=== PATIENT | female | born 1990 | race Caucasian/White ===

== ENCOUNTER → 2022-04-03 14:26 | Outpatient (CLI) | payer OTHER, SELFPAY ==
--- NOTE | ~2022-04-03 | US_ITS ---
EXAMINATION: US breast BI limited HISTORY: Palpable lump in the upper inner quadrant of the left breast and fibrocystic change in the u pper outer quadrant of the right breast TECHNIQUE: Bilateral breast ultrasound. FINDINGS: There is no evidence of focal abnormal cystic or solid mass in the vicinity of the palpable lump of the upper inner left breast. There is a 5 mm cyst at the 9:00 location 5 cm from the nipple in the right breast. There is a 5 mm cyst at the 9:00 location near the nipple in the right breast. IMPRESSION: No suspicious sonographic correlate is identified for the reported palpable abnormality of concern in the left breast with fibrocystic changes of the right breast. Further evaluation at this time should be based on clinical assessment. Continued follow-up physical examination is recommended. BI-RADS Category 2: Benign finding(s). Reviewed, dictated and finalized at location A. IMPRESSION: No suspicious sonographic correlate is identified for the reported palpable abn ormality of concern in the left breast with fibrocystic changes of the right br east. Further evaluation at this time should be based on clinical assessment. C ontinued follow-up physical examination is recommended. BI-RADS Category 2: Benign finding(s).
== END ==
PROVIDERS: Visit Provider Nurse Practitioner
DX: N63.22 Unspecified lump in the left breast, upper inner quadrant (principal)
CPT/HCPCS: 76642

== ENCOUNTER 2024-09-24 08:02 | Emergency (ER) | payer OTHER, SELFPAY ==
--- NOTE | 2024-09-24 08:09 | ED_ITS ---
HPI - General Adult General Chief complaint: Arrhythmia/Palpitations Stated complaint: Heartrate high Time Seen by Provider: 09/24/24 08:30 Source: patient Mode of arrival: ambulatory Limitations: no limitations History of Present Illness HPI narrative: 34-year-old female presents concern is fast heart rate. Reports she felt dizzy and lightheaded this morning and when she was driving to work her smart watch alerted her that her heart rate was in the 160s. She denies feeling anxious at that time. She denies current symptoms. Denies any history of cardiac problems. She denies chest pain or shortness of breath MD complaint: Fast heart rate Related Data Home Medications ?Medication ?Instructions ?Recorded ?Confirmed ?Last Taken ?Type propranolol 10 mg tablet mg 09/24/24 Unknown History Allergies Allergy/AdvReac Type Severity Reaction Status Date / Time buspirone Allergy Severe Unverified 07/16/16 22:39 Review of Systems Review of Systems: CONSTITUTIONAL: Denies malaise, chills, sweats, or fever. CARDIOVASCULAR: Denies chest pain or edema. Reports fast heart rate today RESPIRATORY: Denies cough or dyspnea. NEUROLOGIC: Reports dizziness PSYCHIATRIC: Denies anxiety All systems reviewed & are unremarkable except as noted in HPI and below PMFSH Comments At time of signature, agree with nursing past medical, surgical, social and family history. There is no relevant family history pertinent to the presenting complaint Exam Narrative: GENERAL: Well-appearing, well-nourished, and in no acute distress. HEAD: Normocephalic, atraumatic. EYES: PERRLA, sclera clear, and EOMI. No nystagmus. ENT: Nares clear, no epistaxis. Mucous membranes moist. NECK: Supple. No lymphadenopathy. CHEST: No respiratory distress. Clear to auscultation. No bony deformities, no asymmetry. Speaks in full sentences. HEART: Regular rate and rhythm. No murmur heard. Normal peripheral pulses. EXTREMITIES: Normal range of motion. No edema. Normal strength and sensation. SKIN: Warm, dry, no visible rash. NEURO: Alert and oriented x3. PSYCH: Normal mood and affect Course Course Emergency Course: Patient is currently asymptomatic, EKG is normal. Patient given Cardiology referral Patient is aware of, understands and agrees to treatment plan. Anticipatory guidance given. Patient agrees to follow-up as directed and is aware of reasons to seek care at the emergency department. Portions of this record may have been created with voice recognition software Level of Care: Express Care Visit Vital Signs Vital signs: Reviewed. Medical Decision Making MDM Narrative Medical decision making narrative: The patient was evaluated by myself in the emergency department. History is obtained from patient who is an independent historian and physical exam was performed.? Available medical records were reviewed at this time. ? Exam findings and imaging show no acute concerns or changes; patient is non- toxic appearing and is in no distress. Patient is appropriate for outpatient treatment and follow-up. ? I have evaluated and discussed social determinants of health with the patient that could potentially impact subsequent diagnosis and treatment plans. ? Differential diagnosis and treatment plan were discussed with the patient. Patient agrees with discussion and after shared medical decision making agrees with plan of care. All questions were answered to the patient's satisfaction. ECG Data EKG #1: ECG completion date: 09/24/24 ECG completion time: 08:28 Interpretation: Rate 68, W[place] interval 170, QRS duration 89 EKG Interpretation: normal rate and sinus rhythm Critical Care Time Critical Care Time Critical Care Time: No Discharge Plan Discharge Clinical Impression: Heart rate fast Patient Disposition: Home, Self-Care Condition: Stable Instructions: Tachycardia (ED) Additional Instructions: 1) Please follow-up with your primary care doctor or Cardiology for further evaluation. 2) If you have any worsening of symptoms or any other urgent concerns please go to the ER. 3) Please continue taking your home medications as usual. 4) Please read and follow information included in discharge instructions. Patient Language: Lao Follow-up/Referrals: Cardiology [facility] [Provider Group] Vick Palomares DO [Physician] - PHYSICIAN NOT ON STAFF,NONSTAFF [Primary Care Provider] - Time of Disposition: 08:39
--- NOTE | 2024-09-24 08:14 | ECG_ITS ---
Test Date: 2024-09-24 08:28:15 Measurements Intervals [place] Rate: 68 P: 35 [place]: 170 QRS: 28 QRSD: 89 T: 7 QT: 392 QTc: 420 Interpretive Statements SINUS RHYTHM No previous ECG available for comparison Electronically Signed On 09-28-2024 11:19:34 VECTOR CONTROL SPECIALIST by Omar Ham M.D.
[2024-09-24 08:16] VITALS: BP 130/78; PULSE 71; RESP 16; TEMP 36.8; O2SAT 100
--- OUTSIDE RECORDS SUMMARY | 2024-10-01 06:28 | XMS_ITS | Clinical Summary ---
Author Organization [facility] Address [address] [place] [address] Phone Care Team Providers Care Marketing Traffic Coordinator Name Role Phone DESIRE ANGEL MD Primary Care Provider [phone] Reason for Visit and Chief Complaint The Chief Complaint is: Fever, sore throat, no appetite, ears feel full, congestion and fatigue. Symptoms started on 09-16-23 Problems Includes: Problems addressed during this encounter and other active Problems All Visits Onset Date Resolved Date Provider Condition S tatus Adjustment Disorder with Anxiety 08/27/2016 DESIRE ANGEL MD Active Last Documented On 08/27/2016 11:28PM ; [facility] Note: Unchanged Herpes Simplex Type I 08/27/2016 DESIRE ANGEL MD Active Last Documented On 08/27/2016 11:28PM ; [facility] Note: Unchanged Herpes Simplex Type II 08/27/2016 DESIRE ANGEL MD Active Last Documented On 08/27/2016 11:28PM ; [facility] Note: Unchanged Common Migraine Without Aura Without Intractable Migraine 08/27/2016 DESIRE ANGEL MD Active Last Documented On 08/27/2016 11:28PM ; [facility] Note: Unchanged Nicotine Dependence in Remission 08/27/2016 DESIRE ANGEL MD Active Last Documented On 08/27/2016 11:29PM ; [facility] Note: Unchanged - 5 PACK YR HX, QUIT Plan of Treatment - Return to the clinic if condition worsens or new symptoms arise - Last Documented On 09/19/2023 9:12AM ; [facility] - Patient will call for appointment as needed - Last Documented On 09/19/2023 9:12AM ; [facility] Assessments Includes: Assessments from this encounter Findings - [H65.03 - Acute serous otitis media, bilateral] Acute serous otitis media of both ears - Last Documented On 09/19/2023 9:12AM ; [facility] - [U07.1 - COVID-19] Acute COVID-19 infection - Last Documented On 09/19/2023 9:12AM ; [facility] Medical Equipment - Implanted Devices Includes: Current Devices No Medical Equipment Recorded Medications Includes: Medications discussed during this encounter and other current Medications New / Renewed during this visit CASANDRA TENORIO DNP on 09/19/2023 Fluconazole 150 MG Oral Tablet Provider: CASANDRA Shepherd WAISTLINE JOINER 2 day supply: 2 tablet, 0 refills Diagnosis: Acute serous otitis media, bilateral take as directed 150mg PO ev jloeen 72 hours x 2 doses Pharmacy: [address], [id number] - Last Documented On 9:21AM By Casandra Tenorio DNP ; [facility] Current Medications (continue as prescribed) buPROPion HCl ER (XL) 300 MG Oral Tablet Extended Release 24 Hour 07/18/2023 Provider: DESIRE ANGEL MD Diagnosis: Generalized anxi ety disorder TAKE 1 TABLET BY MOUTH DAILY Last Documented On 07/18/2023 9:11AM By Patti Montana Pineda ; [facility] hydrOXYzine HCl 25 MG Oral Tablet 12/14/2022 Provider: ULISES GONG Diagnosis: Adjustment disor rodney with anxiety 1 tab up to 3 times daily as needed for anxiety. may cause drowsiness Last Documented On 3:58PM By Ulises GONG ; [facility] Slynd 4 MG Oral Tablet 12/14/2022 Provider: Diagnosis: Last Documented On 12/14/2022 3:31PM By REBECA MENDOZA ; [facility] Medications Administered Includes: Administered Medications from this encounter No Administered Medications Recorded Vital Signs Includes: Vital Signs from this encounter Vital Name 09/19/2023 08:57A Pulse Rate-Sitting (bpm) 84 Temp-Oral (F) 98.3 Height (in) 67 Weight (lb) 178.6 Body Mass Index 28 Body Surface Area 1.9 Oxygen Saturation (%) 98 Last Documented: On 09/19/2023 8:59AM ; [facility] Results Includes: Results discussed during this encounter Group A strep [facility] Ordered by CASANDRA TENORIO DNP on Collected: Reported: 09/19/2023 09:00 Last Documented On 3 9:02AM ; [facility] Reviewed on 09/19/2023; All test results are final unless otherwise noted. Rapid Strep Negative N (Normal) Last Documented On 3 9:01AM ; [facility] LOT # AND EXP. DATE [id number] 02-14-26 N (Normal) Last Documented On 3 9:01AM ; [facility] INT. QC ACCEPTABLE? yes N (Normal) Last Documented On 3 9:01AM ; [facility] SARS COVID-19 FLU A & B [facility] Ordered by CASANDRA TENORIO DNP on Collected: Reported: 09/19/2023 09:01 Last Documented On 3 9:02AM ; [facility] Reviewed on 09/19/2023; All test results are final unless otherwise noted. COVID Positive A (Abnormal) Last Documented On 3 9:01AM ; [facility] INFLUENZA A Negative (Negative) N (Normal) Last Documented On 3 9:01AM ; [facility] INFLUENZA B Negative (negative) N (Normal) Last Documented On 3 9:01AM ; [facility] INT. QC ACCEPTABLE? yes N (Normal) Last Documented On 3 9:01AM ; [facility] LOT # & EXP. DATE [id number] 07-24-24 N (Normal) Last Documented On 3 9:01AM ; [facility] History of Present Illness Includes: History of Present Illness from this encounter ROHAN WHITE is a 33 year old female. - Allergy list reviewed - Medication list reviewed - Fever - Previously well - No chills - Headache associated with head congestion - Sinus pain - Sinus pressure - No swollen glands in the neck - No itching of the eyes - No discharge from the eyes - The ears feel pressured - The ears feel full - Nasal discharge - Nasal passage blockage (stuffiness) - Sore throat - No earache - No discharge from the ears - No postnasal drip - No sneezing - No itchy throat - No chest pain or discomfort - No palpitations - Dyspnea - Cough - Not feeling congested in the chest - No wheezing - No rash Korin presents to the clinic with the above reported symptoms that have been going on for the past 3 days now. She reports that she has been running a fever up until this morning. Patient denies any known sick contacts. Social History Description Last Updated Current smoker 09/19/2023 Last Documented On 3 9:12AM ; [facility] Smoking Status Unknown Procedures and Surgical History Includes: Procedures from this encounter Procedures Code Diagnosis Performing Provider Service L ocation Service Date use of tobacco assessment performed 1000F Last Documented On 3 8:59AM ; [facility] review of medications documented 1160F Last Documented On 3 8:59AM ; [facility] Clinical summary provided to patient Last Documented On 3 9:07AM ; [facility] Medical History Includes: Medical History addressed during this encounter No Medical History Recorded Family History Includes: Family History addressed during this encounter No Family History Recorded Review of Systems Includes: Review of Systems from this encounter Systemic: Feeling poorly (malaise) and fever. No chills. Head: Headache and sinus pain. Eyes: No itching of the eyes. Otolaryngeal: Otolaryngeal symptoms. No earache. Both ears feel full and nasal discharge. No hoarseness. Sore throat. Cardiovascular: No chest pain or discomfort. Pulmonary: Dyspnea and cough. No wheezing. Skin: No rash. Mental Status Includes: Mental Status from this encounter No Mental Status Recorded Functional Status Includes: Functional Status from this encounter No Functional Status Recorded Physical Exam Includes: Physical Exam from this encounter Allergies Includes: Active Allergies Substance Type Reaction Onset Date Resolved Date [facility] Allergy hypertension 08/20/2016 Active Last Documented On 3 8:59AM ; [facility] Encounters Encounter Provider Location Date Check-In Time Check-Out Time Diagnosis COVID SICK VISIT- ESTABLISHED PATIENT CASANDRA S JONA LOPEZ [facility] 09/19/20 8:41AM 9:06AM Otitis Media Acute Serous Both Ears,Coronavi aye Covid-19 Infection Acute Insurance Includes: Active Insurance Policies Plan Name Member ID Group # Subscriber Relationship Effect irving Dates 1 - [employer] [id number] KORIN WHITE Self 2 - [facility] [id number] KORIN WHITE Self Clinical Notes Includes: Clinical Notes from this encounter * Progress note Date Encounter Last Documented by 09/19/2023 COVID SICK VISIT- ESTABLISHED YUSUF SANDOVAL Last documented on 09/19/2023; 9:12 AM, CASANDRA TENORIO DNP; [facility] Chief Complaint The Chief Complaint is: Fever, sore throat, no appetite, ears feel full, congestion and fatigue. Symptoms started on 09-16-23. History of Present Illness KORIN WHITE is a 33 year old female. - Allergy list reviewed - Medication list reviewed - Fever - Previously well - No chills - Headache associated with head congestion - Sinus pain - Sinus pressure - No swollen glands in the neck - No itching of the eyes - No discharge from the eyes - The ears feel pressured - The ears feel full - Nasal discharge - Nasal passage blockage (stuffiness) - Sore throat - No earache - No discharge from the ears - No postnasal drip - No sneezing - No itchy throat - No chest pain or discomfort - No palpitations - Dyspnea - Cough - Not feeling congested in the chest - No wheezing - No rash Korin presents to the clinic with the above reported symptoms that have been going on for the past 3 days now. She reports that she has been running a fever up until this morning. Patient denies any known sick contacts. Social History Tobacco use: Current smoker. Review Of Systems Systemic: Feeling poorly (malaise) and fever. No chills. Head: Headache and sinus pain. Eyes: No itching of the eyes. Otolaryngeal: Otolaryngeal symptoms. No earache. Both ears feel full and nasal discharge. No hoarseness. Sore throat. Cardiovascular: No chest pain or discomfort. Pulmonary: Dyspnea and cough. No wheezing. Skin: No rash. Physical Findings - Vitals taken 09/19/2023 08:57 am Pulse Rate-Sitting 84 bpm Temp-Oral 98.3 F Height 67 in Weight 178 lbs 9.6 oz Body Mass Index 28 kg/m2 Body Surface Area 1.9 m2 Oxygen Saturation 98 % General Appearance: - Alert. - Well nourished. - In no acute distress. Neck: Suppleness: - Neck demonstrated no decrease in suppleness. Eyes: General/bilateral: Pupils: - PERRLA. Ears: General/bilateral: External Auditory Canal: - External auditory meatus normal. Right Ear: Tympanic Membrane: - Examined. - Bulging tympanic membrane. - Serous exudate behind tympanic membrane. Left Ear: Tympanic Membrane: - Examined. - Bulging tympanic membrane. - Serous exudate behind tympanic membrane. Nose: General/bilateral: Discharge: - Nasal discharge. Cavity: - Nasal turbinate swollen. Sinus Tenderness: - No sinus tenderness. Pharynx: Oropharynx: - Normal. - Tonsils showed no abnormalities. - Tonsils were not erythematous. - Tonsils were not enlarged. Mucosal: - Pharynx showed an accumulation of purulent mucous. Lymph Nodes: - Anterior cervical lymph nodes were not enlarged. - Posterior cervical lymph nodes were not enlarged. Lungs: - Normal breath sounds/voice sounds. - No wheezing was heard. - No rhonchi were heard. Cardiovascular: Heart Rate And Rhythm: - Normal. Skin: - General appearance was normal. - Texture was normal. - Turgor was normal. - Color and pigmentation were normal. - Moisture was normal. - Mucous membranes were not dry. Tests - Test: Group A strep Report Date: 09/19/2023 Rapid Strep Negative Normal LOT # AND EXP. DATE [id number] 02-14-26 Normal INT. QC ACCEPTABLE? yes Normal - Test: SARS COVID-19 FLU A & B Report Date: 09/19/2023 COVID Positive Abnormal INFLUENZA A Negative Normal INFLUENZA B Negative Normal INT. QC ACCEPTABLE? yes Normal LOT # & EXP. DATE [id number] 07-24-24 Normal Assessment - [H65.03 - Acute serous otitis media, bilateral] Acute serous otitis media of both ears - [U07.1 - COVID-19] Acute COVID-19 infection Therapy - Clinical summary provided to patient. Discussed COVID test was positive at today's visit. Strep test was negative. Flonase nasal spray BID to help dry up fluid behind both ear drums. Advised patient to quarantine 5 days from symptom onset. Follow CDC guidelines closely for COVID-19 virus. 1. Increase fluid intake. 2. Rest as much as possible. 3. Encourage use of humidifier- Regularly clean the humidifier so that bacteria does not grow. 4. Encouraged Vitamin C and Zinc to help boost immune system. 5. Cool liquids to soothe the throat, throat sprays, throat lozenges, cool liquids to help soothe the throat. 6. Acetaminophen or ibuprofen as needed for pain/fever. 7. Antihistamine as needed- such as Zyrtec, Claritin, or Benadryl. 8. Normal saline nasal spray or Netti Pot with sterile water as needed. 9. Warm compress to sinus area. 10. Patient voiced understanding to the teaching. Plan StartCited - Acute pharyngitis, unspecified In office procedures/*Clia Waived Labs: Rapid Strep Test EndCited StartCited - Acute serous otitis media, bilateral Fluconazole 150 MG tablet take as directed 150mg PO every 72 hours x 2 doses, 2 days, 0 refills EndCited StartCited - Fever, unspecified In office procedures/*[facility]ia Waived Labs: SARS COVID-19 + flu A & B test EndCited - Return to the clinic if condition worsens or new symptoms arise - Patient will call for appointment as needed Practice Management Use of tobacco assessment performed Review of medications documented.
--- OUTSIDE RECORDS SUMMARY | 2024-10-01 06:28 | XMS_ITS ---
Care Plan - [facility] Created on: October 01, 2024 ELZA WHITE : 1990 Sex: Female Author Organization [facility] Address [address] [place] [address] Phone Care Team Providers Care Communications Marketing Intern Name Role Phone STANLEY TSE, DESIRE Salomon Primary Care Provider [phone]
--- OUTSIDE RECORDS SUMMARY | 2024-10-01 06:28 | XMS_ITS | Clinical Summary ---
Author Organization [facility] Address [address] [place] [address] Phone Care Team Providers Care Bit Sander Name Role Phone DESIRE ANGEL MD Primary Care Provider [phone] Reason for Visit and Chief Complaint * PHONE CALL Problems Includes: Problems addressed during this encounter and other active Problems All Visits Onset Date Resolved Date Provider Condition S tatus Adjustment Disorder with Anxiety 08/27/2016 DESIRE ANGEL MD Active Last Documented On 08/27/2016 11:28PM ; [facility] Note: Unchanged Herpes Simplex Type I 08/27/2016 DESIRE ANGEL MD Active Last Documented On 08/27/2016 11:28PM ; [facility] Note: Unchanged Herpes Simplex Type II 08/27/2016 DESIRE ANGEL MD Active Last Documented On 08/27/2016 11:28PM ; [facility] Note: Unchanged Common Migraine Without Aura Without Intractable Migraine 08/27/2016 DESIRE ANGEL MD Active Last Documented On 08/27/2016 11:28PM ; [facility] Note: Unchanged Nicotine Dependence in Remission 08/27/2016 DESIRE ANGEL MD Active Last Documented On 08/27/2016 11:29PM ; [facility] Note: Unchanged - 5 PACK YR HX, QUIT Plan of Treatment No Plan of Treatment Recorded Assessments Includes: Assessments from this encounter No Assessments Recorded Medical Equipment - Implanted Devices Includes: Current Devices No Medical Equipment Recorded Medications Includes: Medications discussed during this encounter and other current Medications Current Medications (continue as prescribed) buPROPion HCl ER (XL) 300 MG Oral Tablet Extended Release 24 Hour 07/18/2023 Provider: DESIRE ANGEL MD Diagnosis: Generalized anxi ety disorder TAKE 1 TABLET BY MOUTH DAILY Last Documented On 07/18/2023 9:11AM By Patti Montana [facility] ; [facility] hydrOXYzine HCl 25 MG Oral Tablet 12/14/2022 Provider: ULISES HODGES [facility] Diagnosis: Adjustment disor rodney with anxiety 1 tab up to 3 times daily as needed for anxiety. may cause drowsiness Last Documented On 3:58PM By Ulises Hodges [facility] ; [facility] Slynd 4 MG Oral Tablet 12/14/2022 Provider: Diagnosis: Last Documented On 12/14/2022 3:31PM By REBECA BILLINGS Pineda ; [facility] Past Medications on file Fluconazole 150 MG Oral Tablet 09/19/2023 - 09/21/2023 Provider: CASANDRA TENORIO DNP Diagnosis: Acute serous rico tis media, bilateral take as directed 150mg PO ev joleen 72 hours x 2 doses Last Documented On 9:21AM By Casandra Tenorio DNP ; [facility] Medications Administered Includes: Administered Medications from this encounter No Administered Medications Recorded Results Includes: Results discussed during this encounter No Results Recorded For Specified Dates History of Present Illness Includes: History of Present Illness from this encounter No History of Present Illness Recorded Social History No Social History Recorded - Smoking Status Unknown Medical History Includes: Medical History addressed during this encounter No Medical History Recorded Family History Includes: Family History addressed during this encounter No Family History Recorded Review of Systems Includes: Review of Systems from this encounter No Review of Systems Recorded Mental Status Includes: Mental Status from this encounter No Mental Status Recorded Functional Status Includes: Functional Status from this encounter No Functional Status Recorded Physical Exam Includes: Physical Exam from this encounter No Physical Exam Recorded Allergies Includes: Active Allergies Substance Type Reaction Onset Date Resolved Date Statu s BuSpar Allergy hypertension 08/20/2016 Active Last Documented On 8:59AM ; [facility] Encounters Encounter Provider Location Date Check-In Time Check-Out Time Diagnosis * PHONE CALL DESIRE ANGEL MD 04/29/2023 8:10AM 11:59PM Insurance Includes: Active Insurance Policies Plan Name Member ID Group # Subscriber Relationship Effect irving Dates 1 - [facility] [id number] ELZA WHITE [facility] [address] [facility] [id number] ELZA WHITE Self Clinical Notes Includes: Clinical Notes from this encounter * Progress note Date Encounter Last Documented by 04/29/2023 * PHONE CALL Last documented on 04/29/2023; 8:42 AM, DESIRE ANGEL MD; [facility] Active Problems & Conditions - Adjustment Disorder with Anxiety - Common Migraine Without Aura Without Intractable Migraine - Herpes Simplex Type I - Herpes Simplex Type II - Nicotine Dependence in Remission - 5 PACK YR HX, QUIT 06/08 Chief Complaint Phone Call - Chief Concern: Reason for call: pt is looking sleep study report pt phone # for return call: Date/Initials: amdj 08. Current Medication - buPROPion HCl ER (XL) 300 MG Oral Tablet Extended Release 24 Hour TAKE 1 TABLET BY MOUTH DAILY, 90 days, 1 refills - hydrOXYzine HCl 25 MG Oral Tablet 1 tab up to 3 times daily as needed for anxiety. may cause drowsiness, 30 days, 0 refills - Slynd 4 MG Oral Tablet 0 days, 0 refills Allergies - BuSpar Reaction: hypertension Plan StartCited - Other PHY ORDER/COMMENT there was a phone note opened but no note or message in it. *FABBY HER SLEEP STUDY WAS NEGATIVE/NORMAL, NO EVIDENCE OF SLEEP APNEA EndCited
--- OUTSIDE RECORDS SUMMARY | 2024-10-01 06:28 | XMS_ITS | Clinical Summary ---
Author Organization [facility] Address [address] [place] [address] Phone Care Team Providers Care Bandmill Operator Name Role Phone DESIRE ANGEL MD Primary Care Provider [phone] Reason for Visit and Chief Complaint The Chief Complaint is: Pt has not been exposed to COVID. Pt c/of being feverish, cough, fatigue, body/muscle aches, headache, nasal congestion for three days Problems Includes: Problems addressed during this encounter and other active Problems All Visits Onset Date Resolved Date Provider Condition S tatus Adjustment Disorder with Anxiety 08/27/2016 DESIRE ANGEL MD Active Last Documented On 08/27/2016 11:28PM ; [facility] Note: Unchanged Herpes Simplex Type I 08/27/2016 DESIRE ANGEL MD Active Last Documented On 08/27/2016 11:28PM ; [facility] Note: Unchanged Herpes Simplex Type II 08/27/2016 DESIRE ANGEL MD Active Last Documented On 08/27/2016 11:28PM ; [facility] Note: Unchanged Common Migraine Without Aura Without Intractable Migraine 08/27/2016 DESIRE ANGEL MD Active Last Documented On 08/27/2016 11:28PM ; [facility] Note: Unchanged Nicotine Dependence in Remission 08/27/2016 DESIRE ANGEL MD Active Last Documented On 08/27/2016 11:29PM ; [facility] Note: Unchanged - 5 PACK YR HX, QUIT Plan of Treatment Rapid COVID testing was negative. Discussed OTC medications as needed for symptoms. Follow up if symptoms worsen or do not improve. - Last Documented On 06/14/2022 5:08PM ; [facility] Assessments Includes: Assessments from this encounter Findings - Contact with and (Suspected) exposure to COVID-19 [Z20.822 - Contact with and (suspected) exposure to COVID-19] - Last Documented On 06/14/2022 5:08PM ; [facility] - Acute serous otitis media [H65.01 - Acute serous otitis media, right ear] - Last Documented On 06/14/2022 5:08PM ; [facility] - Acute sinusitis [J01.90 - Acute sinusitis, unspecified] - Last Documented On 06/14/2022 5:08PM ; [facility] Medical Equipment - Implanted Devices Includes: Current Devices No Medical Equipment Recorded Medications Includes: Medications discussed during this encounter and other current Medications New / Renewed during this visit CASANDRA MANCERA on 06/14/2022 Amoxicillin-Pot Clavulanate 875-125 MG Oral Tablet Provider: CASANDRA MANCERA 10 day supply: 20 tablet, 0 refills Diagnosis: Acute sinusitis, unspecified One tablet twice a day Pharmacy: [facility] [address], [phone] - Last Documented On 12/14/2022 3:29PM By REBECA MENDOZA ; [facility] Current Medications (continue as prescribed) buPROPion HCl ER (XL) 300 MG Oral Tablet Extended Release 24 Hour 07/18/2023 Provider: DESIRE ANGEL MD Diagnosis: Generalized anxi ety disorder TAKE 1 TABLET BY MOUTH DAILY Last Documented On 07/18/2023 9:11AM By Patti MENDOZA ; [facility] hydrOXYzine HCl 25 MG Oral Tablet 12/14/2022 Provider: ULISES GONG Diagnosis: Adjustment disor rodney with anxiety 1 tab up to 3 times daily as needed for anxiety. may cause drowsiness Last Documented On 3:58PM By Ulises GONG ; [facility] Slynd 4 MG Oral Tablet 12/14/2022 Provider: Diagnosis: Last Documented On 12/14/2022 3:31PM By REBECA MENDOZA ; [facility] Past Medications on file Fluconazole 150 MG Oral Tablet 09/19/2023 - 09/21/2023 Provider: CASANDRA TENORIO DNP Diagnosis: Acute serous rico tis media, bilateral take as directed 150mg PO ev joleen 72 hours x 2 doses Last Documented On 3 9:21AM By Casandra Tenorio DNP ; [facility] Medications Administered Includes: Administered Medications from this encounter No Administered Medications Recorded Vital Signs Includes: Vital Signs from this encounter Vital Name 06/14/2022 04:02P Pulse Rate-Sitting (bpm) 93 Respiration Rate (breaths/min) 20 Temp-Oral (F) 98.9 Height (in) 67 Weight (lb) 145 Body Mass Index (kg/m2) 22.7 Body Surface Area (m2) 1.8 Oxygen Saturation (%) 97 Last Documented: On 06/14/2022 4:06PM ; [facility] Results Includes: Results discussed during this encounter SARS COVID-19 FLU A & B [facility] Ordered by CASANDRA CONNORSP-C on 0 06/14/2022 Collected: Reported: 06/14/2022 16:18 Last Documented On 2 4:24PM ; [facility] Reviewed on 06/14/2022; All test results are final unless otherwise noted. COVID NEG N (Normal) Last Documented On 2 4:24PM ; [facility] INFLUENZA A NEG (Negative) N (Normal) Last Documented On 2 4:24PM ; [facility] INFLUENZA B NEG (negative) N (Normal) Last Documented On 2 4:24PM ; [facility] INT. QC ACCEPTABLE? YES N (Normal) Last Documented On 2 4:24PM ; [facility] [address] & EXP. DATE [id number] 10/30/2022 N (Normal) Last Documented On 2 4:24PM ; [facility] History of Present Illness Includes: History of Present Illness from this encounter ROHAN TINEO is a 32 year old female. - Allergy list reviewed - Medication list reviewed - Feeling tired - Feeling poorly (malaise) - No fever - Headache - Sinus pain - No eye symptoms - Nasal discharge - Postnasal drip - Nasal passage blockage (stuffiness) - No ear symptoms - No sore throat - No chest pain or discomfort - No chest tightness or heavy pressure - Cough - No dyspnea - No wheezing - Normal appetite - No nausea - No vomiting - No abdominal pain - No diarrhea - No myalgias - No taste decreased Korin is here with symptoms since saturday- She has been taking OTC's but sinus pressure is getting worse. Social History No Social History Recorded - Smoking Status Unknown Procedures and Surgical History Includes: Procedures from this encounter Procedures Code Diagnosis Performing Provider Service L ocation Service Date Discussed with pt / family to observe for signs and symptoms of respiratory distress including the following: shortness of breath, increased respiratory rate, wheezing, difficulty breathing, sternal notch/intercostal retractions, and/or accessory muscle use during respiration. Pt / family to call our office to update patient's status if above changes are noted or worsen Last Documented On 2 4:15PM ; [facility] Medical History Includes: Medical History addressed during this encounter No Medical History Recorded Family History Includes: Family History addressed during this encounter No Family History Recorded Review of Systems Includes: Review of Systems from this encounter Systemic: No fever. Head: Headache, sinus pain, and sinus pressure. Otolaryngeal: No earache. Nasal discharge. No sore throat. Cardiovascular: No chest pain or discomfort. Pulmonary: No dyspnea, no cough, and no wheezing. Gastrointestinal: No vomiting, no abdominal pain, and no diarrhea. Musculoskeletal: No muscle aches. Neurological: No Loss of taste or smell. Skin: No skin symptoms. Mental Status Includes: Mental Status from this encounter Description Oriented to time, place, and person Functional Status Includes: Functional Status from this encounter No Functional Status Recorded Physical Exam Includes: Physical Exam from this encounter Allergies Includes: Active Allergies Substance Type Reaction Onset Date Resolved Date Statu s BuSpar Allergy hypertension 08/20/2016 Active Last Documented On 3 8:59AM ; [facility] Encounters Encounter Provider Location Date Check-In Time Check-Out Time Diagnosis COVID SICK VISIT- ESTABLISHED PATIENT CASANDRA BOWENSCLAIR INSULATION MANAGER-C [facility] 06/14/20 22 3:46PM 4:18PM Contact with and (Suspected) Exposure To Covid-19,Otit is Media Acute Serous,Sinusi tis Acute Insurance Includes: Active Insurance Policies Plan Name Member ID Group # Subscriber Relationship Effect irving Dates 1 - [facility] [id number] KORIN Butt 2 [facility] [id number] KORIN Butt Clinical Notes Includes: Clinical Notes from this encounter No Clinical Notes Recorded
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
--- OUTSIDE RECORDS SUMMARY | 2024-10-01 06:29 | XMS_ITS | Data Portability ---
Author Organization [facility] Xena MAHMOOD Address [address] [place] [address] Care Team Providers Care Tobacco Sprayer Name Role Phone EKATERINA PRUITT Ict Account Manager DESIRE ANGEL Primary Care Provider [phone] Assessment No assessment recorded. Plan of Treatment Reminders Order Date Submit Date Provider Last Modified By Organization Details Last Modified Time Details Appointments None recorded. 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 specimen - loss of taste, and smell, congestion , fever, nausea, body aches, denies being exposed to pos COVID person [facility] 1230 2019 020 [facility] (Lab), [address] [place], [address], 0 10:50:20 HIV 1+2 AB + HIV 1 p24 Ag, qualitativ e immunoassa y, serum 2017 018 [facility], [address] [place] [address], [address], [place], [address], 8 09:37:12 HBsAg (hepatitis B surface Ag), EIA, serum 2017 018 [facility], [address] [place] [address], [address], [place], [address], 8 09:37:13 hepatitis C Ab, signal-to- cutoff, serum or plasma 2017 018 [facility], Kerry [address], [address], [place], [address], 8 09:37:12 RPR (rapid plasma reagin), serum 2017 018 [facility], Kerry [address]endejas, [address], [place], [address], 8 09:37:11 bacterial vaginosis + vaginitis panel, vaginal 2017 018 [facility], [address], [address], [place], [address], 8 09:37:10 bacterial vaginosis + vaginitis panel, vaginal 2016 017 [facility], Kerry Zendejas, [address], [place], [address], 7 06:05:03 prolactin, serum 2016 017 [facility], Kerry Zendejas, [address], [place], [address], 7 06:07:23 TSH, ultra-sens itive, serum 2016 017 [facility], Kerry [address]endejas, [address], [place], [address], 7 06:07:22 FSH (follicle- stimulatin g hormone), serum 2016 017 [facility], [address], [address], [place], [address], 7 06:07:22 Referral None recorded. Procedures None recorded. Surgeries None recorded. Imaging None recorded. Medication Orders drospireno ne 3 mg-ethinyl estradiol 0.02 mg tablet 2017 018 [id number], [address], [place], [id number], 8 16:01:17 metronidaz ole 500 mg tablet 2016 017 [facility] #[id number], [address], [place], [id number], 8 15:16:04 metronidaz ole 500 mg tablet 2016 017 [facility] #[id number], [address], [place], [id number], 8 15:16:04 Patient TargetsNo targets recorded. Patient Instructions Encounter Date Encounter Id Patient Instructions Last Modified By Organization Details Last Modified Time 05/07/2017 [id number] bacterial vaginosis: care instructions shad Not available 05/08/2017 10:35:29 02/24/2018 [id number] premenstrual syndrome (PMS): care instructions [email or web address] Not available 02/24/2018 16:01:12 08/25/2020 [id number] Reviewed the following recommendations: -Stay home and separate from others as much as possible. -Monitor your symptoms and seek medical attention for trouble breathing, persistent chest pain, confusion, or bluish lips or face. -Wear a mask if you must be around other people. -Wash your hands often for 20 seconds with soap and water and clean high-touch surfaces daily -You may discontinue home isolation if your symptoms are improving and it has been 10 days since symptoms started. [email or web address] Not available 08/25/2020 10:31:48 Reason for Referral None Reported. Results Created Date Observation Date Name Description Value Unit Range Abnormal Flag Note LastModifiedBy Organization Detail LastModifiedTime 08/29/2020 SARS CoV 2 RNA (COVI D-19) , QL, kitchen help handyman-P CR, respi rator y speci men covid_19 positive Not Available [facility] (Lab) [address] [place], [address], 08/29/2020 10:50:12 05/08/20 17 05/11/2017 bacte rial vagin osis + vagin itis panel , vagin al isaac albicans, BHAVNA NEGATI VE negati ve Not Available [facility] ([facility]) [address] [place], [address], 05/12/2017 06:05:03 05/08/20 17 05/11/2017 bacte rial vagin osis + vagin itis panel , vagin al isaac glabrata, BHAVNA NEGATI VE negati ve THIS TEST WAS DEVEL OPED AND ITS PERFO RMANC E FIFI CTERI STICS DETER MINED BY [facility]. IT HAS NOT BEEN CLEAR ED OR APPRO KATERINE BY THE FOOD AND DRUG ADMIN ISTRA TION. THE FDA HAS DETER MINED THAT SUCH CLEAR ANCE OR APPRO HEATHER IS NOT NECES NICK. Not Available [facility] ([facility]) [address] [place], [address], 05/12/2017 06:05:03 05/08/20 17 05/11/2017 bacte rial vagin osis + vagin itis panel , vagin al trich vag by BHAVNA NEGATI VE negati ve Not Available [facility] ([facility]) [address] [place], [address], 05/12/2017 06:05:03 05/08/20 17 05/11/2017 bacte rial vagin osis + vagin itis panel , vagin al chlamydia trachomatis, BHAVNA NEGATI VE negati ve Not Available [facility] ([facility]) [address] [place], [address], 05/12/2017 06:05:03 05/08/2005/11/2017 bacte rial vagin osis + vagin itis panel , vagin al neisseria gonorrhoeae, BHAVNA NEGATI VE negati ve Not Available [facility] ([facility]) [address] [place], [address], 05/12/2017 06:05:03 05/08/20 17 05/12/2017 bacte rial vagin osis + vagin itis panel , vagin al atopobium vaginae HIGH - 2 score abnormal Not Available [facility] ([facility]) [address] [place], [address], 05/12/2017 06:05:03 05/08/20 17 05/12/2017 bacte rial vagin osis + vagin itis panel , vagin al bvab 2 LOW - 0 score Not Available [facility] ([facility]) [address] [place], [address], 05/12/2017 06:05:03 05/08/20 17 05/12/2017 bacte rial vagin osis + vagin itis panel , vagin al megasphaera 1 HIGH - 2 score abnormal CALCU LATE TOTAL SCORE BY OPAL G THE 3 INDIV IDUAL BACTE RIAL VAGIN OSIS (BV) MARKE R SCORE S TOGET HER. TOTAL SCORE IS INTER PRETE D FOLLO WS: TOTAL SCORE 0-1: INDIC ATES THE ABSEN CE OF BV. TOTAL SCORE 2: INDET ERMIN ATE FOR BV. ADDIT IONAL CLINI CATE DATA SHOUL D BE EVALU ATED TO ESTAB KRISSY A DIAGN OSIS. TOTAL SCORE 3-6: INDIC ATES THE PRESE NCE OF BV. THIS TEST WAS DEVEL OPED AND ITS PERFO RMANC E FIFI CTERI STICS DETER MINED BY [facility]. IT HAS NOT BEEN CLEAR ED OR APPRO KATERINE BY THE FOOD AND DRUG ADMIN ISTRA TION. THE FDA HAS DETER MINED THAT SUCH CLEAR ANCE OR APPRO HEATHER IS NOT NECES NICK. Not Available [facility] ([facility]) [address] [place], [address], 05/12/2017 06:05:03 05/15/20 17 05/16/2017 TSH, ultra -sens itive , serum TSH 0.906 uIU/m L 0.450- 4.500 Not Available [facility] ([facility]) [address] [facility], [place], [address], 05/16/2017 06:07:21 05/15/20 17 05/16/2017 FSH (foll icle- stimu latin g hormo ne), serum FSH 4.4 mIU/m L ADULT FEMAL E: FOLLI CULAR PHASE 3.5 - 12.5 OVULA TION PHASE 4.7 - 21.5 LUTEA L PHASE 1.7 - 7.7 POSTM ENOPA USAL 25.8 - 134.8 Not Available [facility] ([facility]) [address] [facility], [place], [address], 05/16/2017 06:07:22 05/15/20 17 05/16/2017 prola ctin, serum prolactin 17.9 NG/mL 4.8-23 .3 Not Available [facility] ([facility]) [address] [place], [address], 05/16/2017 06:07:23 10/09/19 18 10/11/2017 bacte rial vagin osis + vagin itis panel , vagin al isaac albicans, BHAVNA Negati ve negati ve Not Available [facility] ([facility]) [address] [facility], [place], [address], 10/12/2017 09:37:10 10/09/19 18 10/11/2017 bacte rial vagin osis + vagin itis panel , vagin al isaac glabrata, BHAVNA Negati ve negati ve This test was devel cathy and its perfo rmanc e fifi cteri stics deter mined by [facility]. It has not been clear ed or appro katerine by the Food and Drug Admin istra tion. The FDA has deter mined that such clear ance or appro heather is not necharry nick. Not Available [facility] ([facility]) [address] [place], [address], 10/12/2017 09:37:10 10/09/19 18 10/11/2017 bacte rial vagin osis + vagin itis panel , vagin al chlamydia trachomatis, BHAVNA Negati ve negati ve Not Available [facility] ([facility]) [address] [facility], [place], [address], 10/12/2017 09:37:10 10/09/19 18 10/11/2017 bacte rial vagin osis + vagin itis panel , vagin al neisseria gonorrhoeae, BHAVNA Negati ve negati ve Not Available [facility] ([facility]) [address] [facility], [place], [address], 10/12/2017 09:37:10 10/09/19 18 10/12/2017 bacte rial vagin osis + vagin itis panel , vagin al atopobium vaginae Low - 0 score Not Available [facility] ([facility]) [address] [place] [address], [address], 10/12/2017 09:37:10 10/09/19 18 10/12/2017 bacte rial vagin osis + vagin itis panel , vagin al bvab 2 Low - 0 score Not Available [facility] ([facility]) [address] [place], [address], 10/12/2017 09:37:10 10/09/19 18 10/12/2017 bacte rial vagin osis + vagin itis panel , vagin al megasphaera 1 Low - 0 score Calcu late total score by opal blanc the 3 indiv idual bacte rial vagin osis (BV) marke r score s toget her. Total score is inter prete d as follo ws: Total score 0-1: Indic ates the absen ce of BV. Total score 2: Indet ermin ate for BV. Addit ional clini cate data shoul d be evalu ated to estab krissy a diagn osis. Total score 3-6: Indic ates the prese nce of BV. This test was devel oped and its perfo rmanc e fifi cteri stics deter mined by [facility]. It has not been clear ed or appro katerine by the Food and Drug Admin istra tion. The FDA has deter mined that such clear ance or appro heather is not scar romero. Not Available [facility] ([facility]) [address] [facility], [place], [address], 10/12/2017 09:37:10 10/09/19 18 10/12/2017 bacte rial vagin osis + vagin itis panel , vagin al trich vag by BHAVNA Negati ve negati ve Not Available [facility] ([facility]) [address] [facility], [place], [address], 10/12/2017 09:37:10 10/09/19 18 10/10/2017 RPR (rapi d plasm a reagi n), serum RPR Non Reacti ve non reacti ve Not Available [facility] ([facility]) [address] [place], [address], 10/12/2017 09:37:11 10/09/19 18 10/10/2017 HIV 1+2 AB + HIV 1 p24 Ag, quali tativ e immun oassa y, serum HIV screen 4TH generation wrfx Non Reacti ve non reacti ve Not Available [facility] ([facility]) [address] [facility], [place], [address], 10/12/2017 09:37:12 10/09/19 18 10/09/2017 hepat itis C Ab, signa l-to- cutof f, serum or plasm a comment: Commen t Non react irving HCV antib ilene scree n is consi stent with no HCV infec tion, unles s recen t infec tion is suspe cted or other evide nce exist s to indic ate HCV infec tion. Not Available [facility] ([facility]) [address] [facility], [place], [address], 10/12/2017 09:37:12 10/09/19 18 10/10/2017 hepat itis C Ab, signa l-to- cutof f, serum or plasm a HCV Ab <0.1 s/co_ ratio 0.0-0. 9 Not Available [facility] ([facility]) [address] [facility], [place], [address], 10/12/2017 09:37:12 10/09/19 18 10/10/2017 HBsAg (hepa titis B surfa ce Ag), EIA, serum HBsAg screen Negati ve negati ve Not Available [facility] ([facility]) [address] [facility], [place], [address], 10/12/2017 09:37:13 Result Notes None recorded. Problems Name Problem SNOMED Code Status Onset Date Resolution Date Notes Provider Name and Address Organization Details Recorded Time Herpes simplex 04505893 Active 016 Lourdes batista [facility] 07/26/2016 09:02:59 Problem Notes None recorded. Procedures Surgical History Date Name Laterality Status Provider Name and Address Organization Details Recorded Time 01/21/20 18 Other completed Lourdes Christensenford [facility] 02/24/2018 15:44:50 12/19/19 17 IUD Removal completed Ekaterina Daniel [facility] 12/18/2016 18:05:18 09/20/20 16 HYSTEROSCOPY W/UTE. FALLOPIAN TUBE OCCLUSION (SURG) completed Ekaterina Pruitt [facility] 10/09/2016 09:00:59 07/26/20 16 Date of Last Pap Smear completed Sanjana Ruff RN [facility] 08/02/2016 10:13:23 Other completed Lourdes Lucille [facility] 07/26/2016 09:06:35 Imaging Results None recorded. Procedure Notes None recorded. Medical Equipment None Reported. Allergies Allergen ID Allergen Name Allergen Category Reaction Reaction Severity Criticality Documentation Date Start Date Code Code System Note Provider Name and Address Organization Details Recorded Time 56784 Buspar medicatio n other Not available Not available 07/26/2016 70112 0 RxNorm gives pt high blood press ure Lourdes batista [facility] 6 09:01:42 Medications Name Sig Start Date Stop Date Status Note LastModified by Organization Details LastModified Time Mirena 21 mcg/24 hr (up to 8 years) 52 mg intrauterin e device Take by intrauter ine route. 05/07 completed Not Available Not Available Not Available nicotine 14 mg/24 hr daily transdermal patch active Not Available Not Available Not Available clindamycin HCl 300 mg capsule Take 1 capsule twice a day by oral route. 10/16 completed Not Available Not Available Not Available sumatriptan 100 mg tablet active Not Available Not Available Not Available hydrocodone 5 mg-acetamin ophen 325 mg tablet active Not Available Not Available No t Available metronidazo le 0.75 % (37.5 mg/5 gram) vaginal gel Insert 1 applicato rful every day by vaginal route. 10/09 completed Not Available Not Available Not Available metronidazo le 500 mg tablet Take 1 tablet every day by oral route. 10/09 completed Not Available Not Available Not Available acetaminoph en 300 mg-codeine 30 mg tablet 02/24 completed Not Available Not Available Not Available acyclovir 400 mg tablet Take 1 tablet every 8 hours by oral route. 2015 active Not Available Not Available Not Avai lable amitriptyli ne 25 mg tablet 10/09 completed Not Available Not Available Not Available cephalexin 500 mg capsule active Not Available Not Available Not Available ibuprofen 600 mg tablet 02/24 completed Not Available Not Available Not Available levofloxaci n 500 mg tablet active Not Available Not Available Not Available naproxen 500 mg tablet 10/09 completed Not Available Not Available Not Available nicotine 7 mg/24 hr daily transdermal patch active Not Available Not Available Not Available chlorhexidi ne gluconate 0.12 % mouthwash 02/24 completed Not Available Not Available Not Available acyclovir 08/02 completed Not Available Not Available Not Available drospirenon e 3 mg-ethinyl estradiol 0.02 mg tablet Take 1 tablet every day by oral route. 2017 active Not Available Not Available Not Avai lable Vitals Date Recorded Body height Body mass index (BMI) Body weight Systolic blood pressure Diastolic blood pressure Provider Name and Address Organization Details Last Updated DateTime 10/09/2017 170.18 cm 25.6 kg/m2 98726.07 g 132 mm[Hg] 68 mm[Hg] Lourdes Adkins [facility] 8 15:15:13 Date Recorded Body height Body mass index (BMI) Body weight Systolic blood pressure Diastolic blood pressure Provider Name and Address Organization Details Last Updated DateTime 10/23/2017 170.18 cm 25.3 kg/m2 99224.53 g 126 mm[Hg] 74 mm[Hg] Lourdes Adkins [facility] 8 15:25:33 Date Recorded Body height Body mass index (BMI) Body weight Systolic blood pressure Diastolic blood pressure Provider Name and Address Organization Details Last Updated DateTime 02/24/2018 170.18 cm 25.3 kg/m2 20969.17 g 134 mm[Hg] 74 mm[Hg] Lourdes Adkins [facility] 8 15:41:59 Date Recorded Body height Body mass index (BMI) Body weight Systolic blood pressure Diastolic blood pressure Provider Name and Address Organization Details Last Updated DateTime 05/07/2017 170.18 cm 24.8 kg/m2 29686.39 g 120 mm[Hg] 70 mm[Hg] Lourdes Adkins [facility] 7 17:36:09 Social History Question Answer Notes LastModified by Organizat ion Details LastModified Time Tobacco Smoking Status Former Smoker quit 08/13/16 Lourdes Adkins [facility] 09/06/2016 12:06:53 What Is Your Level Of Alcohol Consumption? Occasional Information not available 07/26/2016 Is Blood Transfusion Acceptable In An Emergency? Yes Information not available 07/26/2016 What Is Your Level Of Caffeine Consumption? Heavy Information not available 10/09/2017 How Much Tobacco Do You Chew? None Information not available 07/26/2016 Are You Currently Employed? Yes Information not available 07/26/2016 What Type Of Diet Are You Following? REGULAR Information not available 07/26/2016 Which Illicit Or Recreational Drugs Have You Used? Denies Information not available 07/26/2016 Education 2 Year College Informatio n not available 07/26/2016 Live Alone Or With Others? With Others Information not available 07/26/2016 What Was The Date Of Your Most Recent Tobacco Screening? 02/24/2018 Information not available 04/16/2019 How Many Children Do You Have? 1 Information not available 07/26/2016 Performs Monthly Self-breast Exam? No Information not available 07/26/2016 Do You Use Protection During Sex? No Information not available 07/26/2016 What Is Your Relationship Status? Single Information not available 07/26/2016 Seat Belts Used Routinely Yes Information not available 07/26/2016 Are You Sexually Active? Yes Information not available 07/26/2016 At What Age Did You Start Smoking Tobacco? 14 Information not available 07/26/2016 How Much Tobacco Do You Smoke? No Information not available 09/06/2016 General Stress Level Low Information not available 07/26/2016 Do You Use Sunscreen Routinely? No Information not available 07/26/2016 How Many Years Have You Smoked Tobacco? 12 Information not available 07/26/2016 Sex: Unknown Functional Status Question Answer Note LastModified by Organization D etails LastModified Time What is your exercise level? None Information not available 10/09/2017 Mental Status None recorded. Family History Relationship Description Onset Age of this Age Resolved Age Notes LastModified by Organization Details LastModified Time Maternal Grandmother Hypertensive disorder [place] Not available 2015 09:03:28 Maternal Grandmother Heart disease [place] Not available 2015 09:04:10 Maternal Grandmother Cerebrovascu lar accident [place] Not available 11/2015 09:04:18 Maternal Grandmother Diabetes mellitus [place] Not available 2015 09:04:29 Father Hypercholest erolemia [place] Not available 2015 09:03:44 Father Hypertensive disorder [place] Not available 2015 09:03:52 Father Diabetes mellitus [place] Not available 2017 15:17:27 Medical History Condition Response Other Y High Blood Pressure N Breast Cancer N Thyroid Problems N Kidney or Bladder Problems N GI Problems N Depression Y Blood Clots N Lung Disease N Acne Y Eating Disorder N Breast Problem N Anemia N Anesthesia Complications N Headaches/Migraines Y Anxiety Disorder Y Diabetes N Ovarian Cancer N Muscle, Joint, or Bone Problems N Blood Transfusions N Seizures/Epilepsy N Polyps N Infertility N Acid Reflux (GERD) N Cancer N Abuse/Domestic Violence N Asthma N Endometriosis N High Cholesterol N Hepatitis N Liver Disease N Heart Disease N Pre-Eclampsia N Osteoporosis N Gynecological History Statement/Question Response Abnormal Pap N Flow Heavy On BCP's at Conception? N STIs/STDs Y HPV Vaccine Y Duration of Flow (days) 5 Age at Menarche 12 Current Control Method Sterilizati on Age at First Child 17 Sexually Active? Y Menses Monthly Y Date of Last Pap Smear 07/26/2016 Sexual Problems? N LMP Definite Desired Control Method Sterilizati on Obstetrics History GPAL:G 1 P 1 0 0 1 Type Value Multiple Births 0 Full Term 1 Induced 0 Spontaneous 0 Premature 0 Living 1 Ectopics 0 Total 1 Past Encounters Encounter ID Performer Location Encounter Start Date Encounter Closed Date Diagnosis/Indication Diagnosis SNOMED-CT Code Diagnosis ICD10 Code Diagnosis Note [id number] Ekaterina FORDE ([employer] J[employer] DEVELOPER) [address] [place] [address] 07/26/2016 08:50:11 09/28/2016 09:40:56 Gynecologic examination 14459107 Z01.411 Result of last pap no available. Pap done. Venereal d isease screening 256991163 Z11.3 RTO one week for results. Herpes simplex 02056370 B00.9 Bacterial vaginosis 4197 13920 N76.0 Diagnosis d/w pt. Rx sent to pharmacy. Liyahio kenia discussed. [id number] Ekaterina FORDE ([employer] JAVA DEVELOPER) [address] [place] [address] 08/02/2016 10:02:33 08/03/2016 09:36:17 Female sterilization 81659780 Z30.2 Benefits, risks, and alternativ es to both laparoscop ic tubal ligation and Essure d/w pt again. Pt. expressed understand ing. All pt. questions answered. Pt. desires Essure. Will schedule. Gynecologi c examination 28935734 Z01.411 Pap done 07/26/16 was negative, dwp. Venereal d isease screening 945208912 Z11.3 Vaginal culture was negative for gonorrhea, chalamydia , and trinchomon as, dwp. STD panel was also completely negative. Individual test results dwp. [id number] Ekaterina Atkinson ([employer] JAVA DEVELOPER) [address] [place] [address] 09/06/2016 11:07:15 09/10/2016 14:57:23 Bacterial vaginosis 562922016 N76.0 Pt. with symptoms again. Will treat again and give prophylaxi s for surgery. Female sterilization 608 11823 Z30.2 Benefits, risks, and alternativ es to both laparoscop ic tubal ligation and Essure d/w pt again. Pt. expressed understand ing. All pt. questions answered. Pt. desires Essure. Essure scheduled for 09/20/16. [id number] Ekaterina Atkinson ([employer] JAVA DEVELOPER) [address] [place] [address] 10/16/2016 16:33:10 10/17/2016 12:50:43 Female sterilization 33792703 Z30.2 Pt. doing well. Will have HSG 3 mo. from Essure placement. Pt. to have Mirena IUD removed the day before Bacterial vaginosis 4197 70226 N76.0 Will give traaement and prophylaxi s until Mirena is taken out in 3 mo. [id number] Ekaterina Atkinson ([employer] JAVA DEVELOPER) [address] [place] [address] 12/18/2016 16:58:33 12/20/2016 15:21:30 Removal of intrauterine device 76367782 Z30.432 Benefits, risks, and alternativ es to Mirena IUD removal d/w pt. Pt. expressed understand ing. All pt. questions answered. Consent signed and in chart. Mirena IUD was removed per protocol and without difficulty . Please see procedure note for details. Pt. tolerated the procedure well. RTO 07/27/17 for AE. [id number] Ekaterina Atkinson ([employer] JAVA DEVELOPER) [address] [facility] [place] [address] 05/07/2017 17:28:21 05/09/2017 15:56:08 Irregular periods 69509625 N92.6 Will check hormones. Bacterial vaginosis 4197 44943 N76.0 Will give treatment and start prophylaxi s. [id number] Ekaterina Atkinson ([employer] JAVA DEVELOPER) [address] [facility] [place] [address] 10/09/2017 14:58:29 10/10/2017 12:16:04 Gynecologic examination 09258454 Z01.419 Last pap done 07/26/16 was negative. Therefore, no pap needed. Venereal d isease screening 771935632 Z11.3 RTO one week for results. [id number] Ekaterina Pruitt [place] ([employer] JAVA DEVELOPER) [address] [place] [address] 10/23/2017 15:14:12 10/25/2017 11:46:03 Venereal disease screening 026317238 Z11.3 Vaginal culture was negative for gonorrhea, chlamydia, and trichomona s, dwp. STD panel was also completely negative. Individual test results dwp. [id number] Ekaterina Pennygrecia Atkinson ([employer] JAVA DEVELOPER) [address] [place] [address] 02/24/2018 15:32:41 02/26/2018 11:30:22 Premenstrual dysphoric disorder 257705 F32.81 Option of OCPs vs antidepres sants d/w pt. Pt. would like to try OCPs first. Rx sent to pharmacy. Instructio ns discussed. [id number] MOHIT GunnJosiah amber [address] [place] [address] 08/25/2020 09:04:12 08/26/2020 08:22:34 Viral screening 785944247 Z11.59 D/w pt the current pandemic of COVID-19 and call for social isolation in order to blunt the curve and minimize risk and spread. Encouraged patient and family to take restrictio ns seriously. They have verbalized understand ing of such. Viral syndrome [id number] B34.9 Health Concerns Section Related Observation LastModified by Organization Detai ls LastModified Time None Recorded Concern Status LastModified by Organization Details LastModified Time None Recorded Advance Directives Directive None Recorded Payers Encounter Date Sequence Insurance Name Policy Number Policy [place] Covered Member ID [place] Member ID Guarantor Name 05/07/2017 1 R [id number] Korin Méndez [id number] Korin Méndez 10/09/2017 1 R [id number] Korin Méndez [id number] Korin Méndez 10/23/2017 1 R [id number] Korin Méndez [id number] oKrin Méndez 02/24/2018 1 [facility] [id number] Korin Méndez [id number] Korin Méndez 08/25/2020 1 [facility] [id number] Korin Méndez [id number] Korin Méndez Notes Date Note Type Note Provider Name and Address Organization Details Recorded Time 05/07/2017 text/html Pt. presets with c/o two periods this month. They were 7 ad 5 days long. They were every month prior to that. She also has c/o recurrent BV. She thinks she has it again. Ekaterina Pruitt MIKAELA batista SISandy 05/08/2017 14:32:21 10/09/2017 text/html Annual GYNReport ed bypatient.Menstrual cycle:Normal menses Urinary symptoms:No hematuria; No incontinence Vulva:No genital lesion Vagina:Normal vaginal discharge Breast:No breast pain; No breast lump; No nipple discharge Current Contraception:Tubal ligation Sexual complaints:No sexual complaints; No pain during intercourse; Normal libido Menopausal Symptoms:No menopausal symptoms; Normal vaginal lubrication Psychological symptoms:No depression; No anxiety; No PMDD Preventive measures:Encourage self breast examination; Encourage regular exercise; Encourage no tobacco use Ekaterina batistaMIKAELA SISandy 10/09/2017 15:37:50 10/23/2017 text/html Pt. presents for results of STI testing. She has no complaints. Ekaterina Pruitt MIKAELA batista SISandy 10/23/2017 15:34:02 02/24/2018 text/html Pt. presents wit h c/o PMS 2 weeks before her period and 2 days into her period x 2 mo. She feels like a completely different person. Ekaterina Pruitt MIKAELA batista SISandy 02/26/2018 09:05:47 08/25/2020 text/html COVID ScreeningReported bypatient.Onset/Durati on of fever:feverCOVID-19 Symptoms January 2020Reported bypatient.COVID-19 Signs and Symptomscough resolved; fever resolved; fever same; shortness of breath resolved; chills resolved; repeated shaking with chills resolved; muscle pain resolved; muscle pain same; headache resolved; sore throat resolved;new loss of taste or smell; vomiting or diarrhea resolved; fatigue resolved; anorexia resolved Associated Symptoms:no sputum production; no wheezing; no runny nose; no vomiting; no diarrhea; no body aches; no change in mental status; no hypotension; no tachycardia;nausea 30 yo female ,spoke via phone with C/O, loss of taste, and smell, congestion, fever, nausea, body aches, denies being exposed to pos COVID person. VAL Rouse NP Attn: Accounting,[address] [place], [address], [facility] 08/25/2020 10:32:36 OBGyn Episode Ob Episode Information Episode Created Date Number of Fetuses Patient Bloodtype Patient rh Status Prepregnancy Weight lbs Domestic Partner Domestic Partner Phone Father Name Hob Grinder Status 07/26/20 16 1 CLOSED Fetus Data First Name Last Name Admitted to NICU Weight (g) Sex Living Outcome Pediatric Complications Fetus ID Race Codes Race Delivery Type 4025.62 9 M Full Term [id number] Vaginal Eugenio Calculation Initial Eugenio Date Initial Exam Date Initial Exam Provider Initial Ultrasound Date Last Menstrual Period Date Ultra Sound Weeks Gestation 0 Eighteen To Twenty Week Eugenio Update Ultra Sound Date Fundal Height At Umbil Quickening Date Ultra Sound Latest Weeks Gestation Final Eugenio Confirmed By Final Eugenio Confirmed Date Final Eugenio Date Ultra Sound Latest Days Gestation 0 0 Menstrual History Last Menstrual Date Menses Monthly On Bcp Conception Prior Menses Frequency Hcg Plus Date Menarche Onset Age Delivery Information Delivery Date Delivery Type Labor Anesthesia Weeks Gestation Incision Type Labor Labor Length Hrs Delivered By Post Complications Tubal Sterilization Discharge Date Comments 8 Discharge Information Feeding Method Contraceptive Method Maternal HG B and HCT Levels
--- OUTSIDE RECORDS SUMMARY | 2024-10-01 06:29 | XMS_ITS | Data Portability ---
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 Patient will come back in a year unless there are new symptoms. [email or web address] Not available 06/12/2024 15:16:03 Plan of Treatment Reminders Order Date Submit Date Provider Last Modified By Organization Details Last Modified Time Details Appointments None recorded. Lab urinalysis , dipstick 2022 023 [email or web address] 1 [facility] [address], [place], [address], 3 16:34:37 culture, urine 2022 023 [facility] (Lab), [address], [place], [address], 3 06:42:28 Referral None recorded. Procedures None recorded. Surgeries None recorded. Imaging None recorded. Medication Orders Slynd 4 mg (28) tablet 2022 023 [email or web address] [id number], [address], [place], [id number], 4 15:19:01 Macrobid 100 mg capsule 2022 023 [facility] #[id number], [address], [place], [id number], 3 15:50:16 Slynd 4 mg (28) tablet 2022 023 [facility][id number], [address], [place], [id number], 4 15:19:01 Patient TargetsNo targets recorded. Patient InstructionsNo instructions recorded. Reason for Referral None Reported. 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 -No dyspl ian seen. Elect jony johnson by Prosper Levy MD on 022 at 2:58 PM ----- ----- ----- ----- ----- ----- ----- ----- ----- ----- ----- ----- ----- ----- ----- ----- ----- ---- COMME NT: The previ ous Pap smear (CDG [id number]) is noted . CLINI CATE INFOR MATYASEMIN N: R87.6 12 MICRO SCOPI C DESCR IPTIO N: A micro scopi c exami natio n was perfo rmed. GROSS DESCR IPTIO N: A. Cervi x. The speci men is label ed with the patie nt's name, holley eden and BX 11:00 . Recei katerine in forma elena is a 0.3 cm fragm ent of white -hanks tissu e. The entir e speci men is submi tted in one casse tte. Gross ed by Anthony Corrigan on Not Available [facility] [address] [place], [address], 04/24/2022 16:01:35 02/22/20 23 02/21/2023 CULTU RE: URINE result report SEE RESULT S BELOW Test: Cultu re: Urine Speci men Sourc e: Urine Voide d Speci men Type: Urine Speci men Date: 023 4:18 PM Resul t Date: 023 5:38 AM Resul t Statu s: Final resul t Abnor mal: No Resul ting Lab: [facility] [address] [facility] [address] Tel: CULTU RE ----- ----- ----- --- No growt h in 1 day (dete ction level of 10,00 0 colon ies / ml.) Not Available [facility] (Lab) [address], [place], [address], 02/23/2023 06:42:27 02/22/20 23 02/21/2023 urina lysis , dipst ick Leukocytes +1 Not Available [facility] [address], [place], [address], 02/21/2023 16:33:18 02/22/20 23 02/21/2023 urina lysis , dipst ick Nitrite normal Not Available [place] [address], [place], [address], 02/21/2023 16:33:18 02/22/20 23 02/21/2023 urina lysis , dipst ick Urobilinogen normal Not Available [facility] navneet [address], [place], [address], 02/21/2023 16:33:18 02/22/20 23 02/21/2023 urina lysis , dipst ick Protein trace Not Available [facility] [address], [place], [address], 02/21/2023 16:33:18 02/22/20 23 02/21/2023 urina lysis , dipst ick pH 7 Not Available [facility] [address], [place], [address], 02/21/2023 16:33:18 02/22/20 23 02/21/2023 urina lysis , dipst ick Blood trace Not Available [facility] [address], [place], [address], 02/21/2023 16:33:18 02/22/20 23 02/21/2023 urina lysis , dipst ick Specific Bailey 1.015 Not Available [facility] [address], [place], [address], 02/21/2023 16:33:18 02/22/20 23 02/21/2023 urina lysis , dipst ick Ketone normal Not Available [facility] [address], [place], [address], 02/21/2023 16:33:18 02/22/20 23 02/21/2023 urina lysis , dipst ick Bilirubin normal Not Available [facility] cary [address], [place], [address], 02/21/2023 16:33:18 02/22/20 23 02/21/2023 urina lysis , dipst ick Glucose normal Not Available [facility] [address], [place], [address], 02/21/2023 16:33:18 02/22/20 23 02/21/2023 urina lysis , dipst ick Appearance normal Not Available [facility] tania [address], [place], [address], 02/21/2023 16:33:18 02/22/20 23 02/21/2023 urina lysis , dipst ick Color normal Not Available [facility] [address], [place], [address], 02/21/2023 16:33:18 06/12/20 24 06/12/2024 IMAGE GUIDE D PAP AND HPV REGAR DLESS image guided Pap, HPV regardless of Pap result SEE RESULT S BELOW CASE REPOR T: Cytol ogy Gynec ologi cate Repor t Case: [id number] Autho rin g Provi rodney: Khang Simms MD Colle cted: 06/12 1542 Order ing Locat ion: [place] Patho logy Recei katerine: 06/14 1227 First Scree n: Vanessa Cook ret, CT Rescr een: Marisa Baltazar Speci men: Scree devaughn Pap - Image d, Cervi x STATE MENT OF ADEQU ACY: Satis facto ry for evalu ation Trans forma tion zone compo nent absen t The absen ce of an endoc ervic al compo nent was confi rmed by an addit ional scree ner. ----- ----- ----- ----- ----- ----- ----- ----- ----- ----- ----- ----- ----- ----- ----- ----- ----- ---- FINAL DIAGN OSIS: Negat irving for Intra epith elial Ernie zambrano or Lucia sullivan (NIL) . Elect jony johnson by Marisa Baltazar on 2023 at 8:32 PM ----- ----- ----- ----- ----- ----- ----- ----- ----- ----- ----- ----- ----- ----- ----- ----- ----- ---- HPV RESUL TS: HPV mRNA E6/E7 : No HPV mRNA Detec grant NOTE: This high risk HPV mRNA assay detec ts fourt een high- risk HPV types (16, 18, 31, 33, 35, 39, 45, 51, 52, 56, 58, 59, 66, 68) witho ut diffe renti ation . COMME NT: This speci men was revie wed by a Cytot echno logis t and/o r Patho logis t (as indic ated in this repor t) after evalu ation using the Thinp rep Imagi ng Syste m. CLINI CATE INFOR MATIO N: Menst rual Statu s: LMP (if appli cable ): Clini cate Histo ry/Pr eviou s Pap: Type of Neopl ian (if appli cable ): Signi fican t Clini cate Findi ngs: Other Histo ry: Hormo martín (if appli cable ): PAP EDUCA MERT L NOTE: The Pap Test is a scree devaughn test with an inher ent false negat irving rate. Liqui d-bas ed sampl ing may decre ase, but will not elimi haroon, false negat irving resul ts. A negat irving resul t does not precl ude the prese nce and/o r devel opmen t of disea se, since the prese nce of abnor mal cells in the sampl e depen ds on the locat ion of the lesio n and sampl ing techn ique. Ruy nued regul ar scree devaughn is the best metho d of cance r preve ntion . If repor grant cytol ogic findi ng do not corre late with physi cate and/o r histo rical findi ngs, furth er inves tigat ion is recom aron d, as clini tico warra nted. Not Available [facility] (Lab) [address], [place], [address], 06/19/2024 21:36:09 04/04/20 22 04/03/2022 US, mac gomez No observ ation record ed. [facility] [address], [place], [address], 04/05/2022 15:44:32 Result Notes None recorded. Problems Name Problem SNOMED Code Status Onset Date Resolution Date Notes Provider Name and Address Organization Details Recorded Time Pregnanc y test negative 504613750 Completed 201204/20/2022 examinati on or test, negative result;Re corded Elsewhere : No Locati on: [facility] So urce: EHR Chron ic: N Practic e ID: 0001 Bill able Time: 11:15:00 AM Maureen [facility] 2 17:40:06 Vaginiti s and vulvovag initis Completed 201304/20/2022 Vaginitis ;Recorded Elsewhere : No Locati on: [facility] So urce: EHR Chron ic: N Practic e ID: 0001 Bill able Time: 01:00:00 PM Maureen [facility] 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 2 17:40:06 Pelvic and perineal pain 305112185 Completed 201504/20/2022 Pelvic and perineal pain;Jarek rded Elsewhere : No Locati on: [facility] So urce: EHR Chron ic: N Practic e ID: 0001 Bill able Time: 02:30:00 PM Maureen batista [facility] 2 17:40:06 Hypertro phy of vulva 90782735 Completed 201304/20/2022 Hypertrop hy of labia;Rec orded Elsewhere : No Locati on: [facility] So urce: EHR Chron ic: N Practic e ID: 0001 Bill able Time: 10:00:00 AM Maureen batista [facility] 2 17:40:06 Removal of intraute rine device Completed 201204/20/2022 REMOVAL OF IUD;Recor ded Elsewhere : No Locati on: [facility] So urce: EHR Chron ic: N Practic e ID: 0001 Bill able Time: 10:30:00 AM Maureen batista [facility] 2 17:40:06 Ulcerati on of vulva [id number] Completed 201404/20/2022 Ulceratio n of vulva;Rec orded Elsewhere : No Locati on: [facility] So urce: EHR Chron ic: N Practic e ID: 0001 Bill able Time: 01:30:00 PM Maureen batista [facility] 2 17:40:06 Pre-surg joleen evaluati on Completed 201304/20/2022 Pre-opera tive examinati on, unspecifi ed;Record ed Elsewhere : No Locati on: [facility] So urce: EHR Chron ic: N Practic e ID: 0001 Bill able Time: 05:00:00 PM Maureen batista [facility] 2 17:40:06 Proteinu bhumika [id number] Completed 201304/20/2022 Proteinur ia;Record ed Elsewhere : No Locati on: [facility] So urce: EHR Chron ic: N Practic e ID: 0001 Bill able Time: 01:00:00 PM [facility] 2 17:40:06 Vaginola bial hernia Completed 201504/20/2022 Other specified noninflam matory disorders of vagina;Re corded Elsewhere : No Locati on: [facility] So urce: EHR Chron ic: N Practic e ID: 0001 Bill able Time: 01:00:00 PM Maureen Tristan [facility] 2 17:40:06 Contrace ptive sheath status 006031804 Completed 201404/20/2022 Encounter for routine checking of intrauter ine contracep dev;Recor ded Elsewhere : No Locati on: [facility] So urce: EHR Chron ic: N Practic e ID: 0001 Bill able Time: 01:30:00 PM Maureen Tristan [facility] 2 17:40:06 Adult health examinat ion Completed 201404/20/2022 ROUTINE MEDICAL EXAM;Jarek rded Elsewhere : No Locati on: [facility] So urce: EHR Chron ic: N Practic e ID: 0001 Bill able Time: 11:15:00 AM Maureen Tristan [facility] 2 17:40:06 Venereal disease screenin g Completed 201404/20/2022 Screening examinati on for venereal disease;R ecorded Elsewhere : No Locati on: [facility] So urce: EHR Chron ic: N Practic e ID: 0001 Bill able Time: 11:15:00 AM Maureen batista [facility] 2 17:40:06 Insertio n of intraute rine contrace ptive device Completed 201204/20/2022 INSERTION OF IUD;Recor ded Elsewhere : No Locati on: [facility] So urce: EHR Chron ic: N Practic e ID: 0001 Bill able Time: 11:15:00 AM Maureen batista [facility] 2 17:40:06 Screenin g for malignan t neoplasm of cervix Completed 201404/20/2022 Screening for malignant neoplasms of the cervix;Re corded Elsewhere : No Locati on: [facility] So urce: EHR Chron ic: N Practic e ID: 0001 Bill able Time: 11:15:00 AM Maureen Tristan [facility] 2 17:40:[address] Concept Completed 201504/20/2022 Encntr for general adult medical exam w/o abnormal findings; Recorded Elsewhere : No Locati on: [facility] So urce: EHR Chron ic: N Practic e ID: 0001 Bill able Time: 01:00:00 PM Maureen Tristan [facility] 2 17:40:06 Anxiety state [id number] Completed 201404/20/2022 Anxiety reaction; Recorded Elsewhere : No Locati on: [facility] So urce: EHR Chron ic: N Practic e ID: 0001 Bill able Time: 03:30:00 PM Maureen Tristan [facility] 2 17:40:06 loco medical examinat ion Completed 201404/20/2022 Other specified chlamydia l diseases; Recorded Elsewhere : No Locati on: [facility] So urce: EHR Chron ic: N Practic e ID: 0001 Bill able Time: 11:15:00 AM Maureen Tristan [facility] 2 17:40:06 Problem Notes None recorded. Procedures Surgical History Date Name Laterality Status Provider Name and Address Organization Details Recorded Time 04/23/20 Colposcopy completed EZRA Andrew- [address], [place], [address], [facility] 04/24/2022 09:40:08 03/15/20 22 Date of Last Pap Smear completed Maureen Tristan [facility] 04/23/2022 17:19:25 09/23/19 19 ligation of bilateral fallopian tubes completed Sofía Kellyzeke [facility] 03/15/2022 15:28:56 09/23/19 14 [facility] 09:48:23 Imaging Results Imaging Date Name Status LastModified by Organiz ation Details LastModified Time 04/03/2022 US, breast, bilateral completed [facility] [address], [place], [address], 04/05/2022 15:44:32 Procedure Notes None recorded. Medical Equipment None Reported. Allergies Allergen ID Allergen Name Allergen Category Reaction Reaction Severity Criticality Documentation Date Start Date Code Code System Note Provider Name and Address Organization Details Recorded Time 15205 buspirone medicatio n Not available Not available Not available 04/23/2022 1827 RxNorm Maureen Tristan [facility] 17:18:55 Medications Name Sig Start Date Stop Date Status Note LastModified by Organization Details LastModified Time Mirena 21 mcg/24 hr (up to 8 years) 52 mg intrauter ine device 03/15 completed Prescrib ed Elsewher e: Yes Loca tion: [facility] odify By: [email or web address] trick En counter DateTime : 02/27/20 13 11:15:00 AM Not Available Not Available Not Available azithromy sharmin 250 mg tablet 12/12 completed Not Available Not Available Not Available ondansetr on HCl 4 mg tablet TAKE 1 TABLET BY MOUTH EVERY 4 HOURS NEEDED FOR NAUSEA 12/12 completed Not Available Not Available Not Available prednison e 20 mg tablet TAKE 3 TABLETS BY MOUTH EVERY DAY 03/15 completed Not Available Not Available Not Available naproxen 250 mg tablet take 1 tablet by oral route 2 times every day with food 12/12 completed Prescrib ed Elsewher e: Yes Loca tion: [facility] M odify By: [email or web address] trick En counter DateTime : 02/08/20 16 02:30:00 PM Not Available Not Available Not Available acyclovir 400 mg tablet take 2 tablet by oral route 2 times every day for 5 days 08/01 completed Prescrib ed Elsewher e: No Locat ion: [facility] odify By: [email or web address] l Encoun ter DateTime : 07/28/20 15 10:13:05 AM Not Available Not Available Not Available Metrogel Vaginal 0.75 % (37.5 mg/5 gram) insert 1 applicat orful by vaginal route every day at bedtime 07/27 completed Prescrib ed Elsewher e: No Locat ion: [facility] odify By: [email or web address] trick En counter DateTime : 05/31/20 15 10:31:43 AM Not Available Not Available Not Available Flagyl 500 mg tablet take 1 tablet by oral route 2 times every day 02/07 completed Prescrib ed Elsewher e: No [facility] By: [email or web address] trick En counter DateTime : 12/07/19 16 10:37:08 AM Not Available Not Available Not Available doxycycli ne monohydra te 100 mg capsule take 1 capsule by oral route 2 times every day for 10 days 02/11 completed Prescrib ed Elsewher e: No [facility] odify By: cmedical Encount er DateTime : 02/03/20 14 11:11:03 AM Not Available Not Available Not Available Prozac 20 mg capsule Take 1 capsule every day by oral route. active Not Available Not Available No t Available hydroxyzi ne HCl 25 mg tablet TAKE 1 TABLET BY MOUTH UP TO THREE TIMES DAILY NEEDED FOR ANXIETY. MAY CAUSE DROWSINE SS active Not Available Not Available No t Available Valtrex 500 mg tablet take 1 tablet by oral route 2 times every day for 3 days 07/28 completed Prescrib ed Elsewher e: No Locat ion: [facility] odify By: bcermelinda l Encoun ter DateTime : 07/27/20 15 01:30:00 PM Not Available Not Available Not Available gabapenti n 100 mg capsule TAKE 1 CAPSULE BY MOUTH THREE TIMES DAILY active Not Available Not Available No t Available methylpre dnisolone 4 mg tablets in a dose pack FOLLOW PACKAGE DIRECTIO NS 03/15 completed Not Available Not Available Not Available Zoloft 25 mg tablet take 1 tablet by oral route every day 06/10 completed Prescrib ed Elsewher e: No Locat ion: [facility] c[facility] odify By: [email or web address] trick En counter DateTime : 05/24/20 15 11:15:00 AM Not Available Not Available Not Available amoxicill in 875 mg-potass ium clavulana te 125 mg tablet TAKE 1 TABLET BY MOUTH TWICE DAILY 12/12 completed Not Available Not Available Not Available Bactrim DS 800 mg-160 mg tablet take 1 tablet by oral route 2 times every day for 10 days 02/02 completed Prescrib ed Elsewher e: No Locat ion: [facility] odify By: cmedical Encount er DateTime : 01/22/20 14 01:30:00 PM Not Available Not Available Not Available escitalop carlton 10 mg tablet TAKE 1 TABLET BY MOUTH DAILY 03/15 completed Not Available Not Available Not Available bupropion HCl XL 300 mg 24 hr tablet, extended release TAKE 1 TABLET BY MOUTH DAILY 06/12 completed Not Available Not Available Not Available bupropion HCl XL 150 mg 24 hr tablet, extended release TAKE 1 TABLET BY MOUTH DAILY active Not Available Not Available No t Available tinidazol e 500 mg tablet take 4 tablet (2G) by oral route every day with food 12/23 completed Prescrib ed Elsewher e: No Locat ion: [facility] odify By: [email or web address] trick En counter DateTime : 10/30/19 14 01:00:00 PM Not Available Not Available Not Available nitrofura ntoin monohydra te/macroc rystals 100 mg capsule TAKE 1 CAPSULE BY MOUTH EVERY 12 HOURS FOR 7 DAYS active Not Available Not Available No t Available alprazola m 0.25 mg disintegr ating tablet take 1 tablet po prn for anxiety 06/10 completed Prescrib ed Elsewher e: No Locat ion: [facility] M odjanis By: kmkirkpa trick En counter DateTime : 05/27/20 10:25:37 AM Not Available Not Available Not Available Slynd 4 mg (28) tablet Take 1 tablet by oral route for 84 days. 06/12 completed Not Available Not Available Not Available Vitals Date Recorded Body height Provider Name an d Address Organization Details Last Updated DateTime 04/23/2022 170.18 cm Maureen Tristan [facility] 04/23/2022 17:18:28 Date Recorded Systolic blood pressure Diastolic blood pressure Provider Name and Address Organization Details Last Updated DateTime 04/23/2022 122 mm[Hg] 76 mm[Hg] Eliana Berrios, [facility]- [address], [place], [address], [facility] 04/24/2022 09:38:40 Date Recorded Body height Systolic blood pressure Diastolic blood pressure Provider Name and Address Organization Details Last Updated DateTime 12/12/2022 170.18 cm 123 mm[Hg] 74 mm[Hg] [address] [facility] 12/12/2022 16:10:15 Date Recorded Body height Provider Name an d Address Organization Details Last Updated DateTime 02/21/2023 170.18 cm Nakia Soto [facility] 02/21/2023 16:32:41 Date Recorded Body height Body mass index (BMI) Body weight Systolic blood pressure Diastolic blood pressure Provider Name and Address Organization Details Last Updated DateTime 03/19/2023 170.18 cm 22.1 kg/m2 20861.81 g 128 mm[Hg] 80 mm[Hg] [address] [facility] 17:21:27 Date Recorded Body height Body mass index (BMI) Body weight Systolic blood pressure Diastolic blood pressure Provider Name and Address Organization Details Last Updated DateTime 06/12/2024 170.18 cm 29.1 kg/m2 11118.18 g 133 mm[Hg] 79 mm[Hg] Vivian Villagran [facility] 15:18:46 Social History Question Answer Notes LastModified by Organizat ion Details LastModified Time Tobacco Smoking Status Current Every Day Smoker [address] null, [facility] 03/15/2022 15:28:24 What Is Your Level Of Alcohol Consumption? Occasional Information not available 03/15/2022 Are You Blind Or Do You Have Difficulty Seeing? No Information not available 03/15/2022 In The 14 Days Before Symptom Onset, Have You Had Close Contact With A Laboratory-confir med COVID-19 While That Case Was Ill? No Information not available 06/12/2024 In The 14 Days Before Symptom Onset, Have You Had Close Contact With A Person Who Is Under Investigation For COVID-19 While That Person Was Ill? No [email or web address] Information not available 06/12/2024 Have You Been To An Area Known To Be High Risk For COVID-19? No [email or web address] Information not available 06/12/2024 Are You Deaf Or Do You Have Serious Difficulty Hearing? No Information not available 03/15/2022 What Type Of Diet Are You Following? REGULAR Information not available 03/15/2022 Sex: Unknown Functional Status Question Answer Note LastModified by Organizat ion Details LastModified Time Do you have difficulty walking or climbing stairs? No Information not available 03/15/2022 Are you able to walk? YESWOREST Information not available 03/15/2022 Are you able to care for yourself? Yes Information not available 03/15/2022 Do you have difficulty dressing or bathing? No Information not available 03/15/2022 What is your exercise level? Heavy Information not available 03/15/2022 Mental Status None recorded. Family History Relationship Description Onset Age of this Age Resolved Age Notes LastModified by Organization Details LastModified Time Brother Asthma vschroedter Not availab le 03/15/2022 09:52:24 Father Asthma vschroedter Not availabl e 03/15/2022 09:52:24 Maternal Grandmother Diabetes mellitus vschroedter Not available 02/22 09:52:58 Maternal Grandmother Malignant tumor of cervix vschroedter Not available 02/22 09:53:18 Maternal Grandmother Cyst of ovary vschroedter Not available 02/22 09:54:37 Maternal Grandmother Blood coagulation disorder vschroedter Not available 02/22 09:55:11 Maternal Grandmother Congenital heart disease vschroedter Not available 02/22 09:56:07 Mother Malignant tumor of cervix vschroedter Not available 02/22 09:53:42 Mother Cyst of ovary vschroedter Not available 02/22 09:54:37 Mother Blood coagulation disorder vschroedter Not available 02/22 09:55:11 Mother Female infertility vschroedter Not available 09:56:59 Paternal Aunt Malignant tumor of cervix vschroedter Not available 02/22 09:57:44 Son Anxiety disorder [email or web address] Not available 2023 15:19:57 Medical History Condition Response Allergies (Food, seasonal, environmental ) N Other N Breast Cancer N Drug/Latex Allergies/Reactions N Blood Transfusion N Dermatologic Disorders N Lung Disease N Defects or Inherited Disease N Breast Problem N Gestational Diabetes N Hematologic disorders N Anesthesia Complications N History of STI N Deep Vein Thrombosis N Polycystic ovary syndrome Y Anxiety Disorder N Autoimmune disease N Arthritis N Infertility N Polyps N Acid Reflux (GERD) N History of abnormal pap N Cancer N Stroke N Varicosities N Neurologic/Epilepsy N Endometriosis N High Cholesterol N Headaches Y Fibromyalgia N Kidney Disease N Heart Problems N Kidney or Bladder Problems N Thyroid Problems N GI Problems N Eating Disorder N Anemia N Art (IVF or FET) N Psychiatric Illness N Ovarian Cancer N Diabetes N Pulmonary (TB, Asthma) N Hepatitis/Liver Disease N No Past Medical History N Eczema N Urinary Tract Infection N Abuse/Domestic Violence N Asthma N Trauma/Violence N Depression/ depression N Heart Disease N Pre-Eclampsia N Hypertension N Osteoporosis N Thrombophilias N Gynecological History Statement/Question Response Abnormal Pap N Flow Heavy Date of LMP 05/29/2024 Was last menstrual period normal N STIs/STDs Y HPV Vaccine N Duration of Flow (days) 3 Current Control Method Tubal Ligat ion Are cycles usually normal N Sexually Active? Y Menses Monthly Y Date of Last Pap Smear 03/15/2022 Sexual Problems? N LMP Approximate Obstetrics History GPAL:G 1 P 0 0 0 1 Type Value Living 1 Total 1 Past Encounters Encounter ID Performer Location Encounter Start Date Encounter Closed Date Diagnosis/Indication Diagnosis SNOMED-CT Code Diagnosis ICD10 Code Diagnosis Note [id number] EZRA Lugo [facility] [address] [address] 03/15/2022 14:56:49 03/16/2022 16:29:39 Irregular periods 76088241 N92.6 Take Calcium with Vitamin D 1200mg daily if not receiving in daily diet. It is strongly advised to have an annual flu shot and up can obtain at most pharmacies . If you have not had a TDap shot in the last 10 years you should obtain one as well. Discussed with patient & provided with informatio n regarding Gardisil vaccine to prevent the 4 strains for HPV that cause cervical cancer if under age 26. Encourage safe sexual practices, to use condoms and limit partners if not already in a monogamous relationsh ip. Do monthly self breast exams. Have mammogram yearly or every other year depending on family history. BRCA testing is now available for patients with strong genetic history of female cancer. If interested contact the office. Engage in daily exercise of low impact aerobic exercise 45-60 minutes 4-5 times weekly. Avoid tobacco and illicit drugs as well as using moderation with alcohol intake less than 1-2 8 oz beverages daily. This lifestyle behavior pattern will lead to less health conditions and longer life span. If BMI greater than 25 weight watchers or dietary consult advised. Patient received above instructio ns, and questions have been answered. If you have any questions please call or respond to this email. Patient was made aware of the patient portal and may obtain a paper copy of today's plan if desired. WWEHx of abnormal pap in the pastLast pap 2015 NILMPap done todayHx of Essure permanent sterilizat ion in 2019. She has been having pelvic pain on and off since then, States it feels like she can feel something putting pressure on the her pelvis.Gagan l have her obtain a pelvic u/s for assessment .Having unwanted hair growth on chin/neck, periods have become slightly heavier since procedure as well. Labs orderedBre ast exam with left breast lump at 12 o'clock, about 2cm in size. Right breast with likely fibrocysti c changes. Breast imaging ordered.UT D with PCP on routine labsRTC for pelvic u/s and u/s f/u appointmen t Red flag symptoms discussed with patient Time spent in visit is a total of 40 mins with at least 50% of visit consisting of counseling and review of plan of care. Mass of left breast [id number] 4141554 N63.20 Pain in pelvis 32374305 R10.2 [id number] Marybethrena Tristan [facility] [address] [address] 03/20/2022 17:23:49 03/20/2022 18:16:25 Irregular periods 07678357 N92.6 R10.2 [id number] EZRA Lugo [facility] [address] [address] 03/28/2022 15:49:08 04/03/2022 16:45:06 Pain in pelvis 88010236 R10.2 We discussed normal appearing uterus and ovaries on pelvic examLabs Kyle feels like at times she can feel her essure tubal device and this is causing her pain/press ure. Pain is random and does not happen all the time.We discussed MD consult for potential removal of essure device given her symptoms, patient will consider this and call the office if she decides to move forward with MD consult.On cervical exam, there is a small <1mm, brown cervical lesion present at about 11/12 o'clock. Pap smear NILM, HR HPV (-). Given the appearance of this lesion, would recommend colposcopy examinatio n to determine if biopsy is needed. She has multiple nabothian cyst present, potentiall y nabothian cyst but due to color warrants further examinatio n.RTC for colposcopy Time spent in visit is a total of 25 mins with at least 50% of visit consisting of counseling and review of plan of care. Lesion of cervix [id number] 01 N88.9 [id number] [facility] [address] [address] 04/23/2022 17:06:43 04/24/2022 15:35:50 Lesion of cervix [id number] N88.9 See procedure notes.Post -procedure instructio ns reviewed with understand ing verbalized .Will contact with results & next steps in plan of care. 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 Pt would like to start POP. She is aware of the risks and benefits. She has contraindi cations to use of OCP or other estrogen containing hormonal therapy. Pt will start her pills on the first saturday following the start of her period. She is aware it is not effective for control the first month. She is also aware of the importance of taking at the same time every day. Encouraged use of condoms as the pill does not protect against STD's. Will return in 3 months for med check. Consent was read and signed. Pt verbalized understand ing. Samples given x 3 monthsEnco uraged her to f/u with PCP who is prescribin g wellbutrin , as she may need a medication changeEnco uraged counseling We discussed if thoughts of harming herself or others occur, this is an emergency, needs to seek help/call 911. Patient verbalized understand [facility] for med check in 3 months Time spent in visit is a total of 25 mins with at least 50% of visit consisting of counseling and review of plan of care. EPDS : 21 Mixed anxi ety and depressive disorder [id number] F41.8 Premenstru al dysphoric disorder 820980 F32.81 Contracept ion care management [id number] Z30.9 [id number] Nakia Soto [facility] [address] [address] 02/21/2023 15:36:02 02/21/2023 16:40:47 Urinary symptoms 994432003 R39.9 Dysuria 79444066 R30.0 [id number] EZRA Lugo [facility] [address],[place] [address] 03/19/2023 17:15:21 03/19/2023 18:01:13 Irregular periods 57189118 N92.6 Patient is here today for a medicaton check of control. She voices goals of therapy have been met with use of this therapy. She denies neg side effects. She is eating, drinking, sleeping well; moods are stable & periods are well regulated. Wishes to continue this method of BC. Appropriat e to continue this medication . refills sent x 12 monthsRTC in 1 year or sooner if needed [id number] FE MCKEON MD [facility] [address],[place] [address] 06/12/2024 15:02:33 06/12/2024 16:08:48 Gynecologic examination 37533163 Z01.419 [facility] woman [facility]- Cervical cancer screening: Pap smear obtained today, will follow up on the results with the patient as they become available- Breast cancer screening: mammogram not indicated- Colon cancer screening: does not qualify- STD testing: declined- hereditary cancer screening: does not qualify for testing Health Concerns Section Related Observation LastModified by Organization Detai ls LastModified Time None Recorded Concern Status LastModified by Organization Details LastModified Time None Recorded Advance Directives Directive None Recorded Payers Encounter Date Sequence Insurance Name Policy Number Policy [place] Covered Member ID [place] Member ID Guarantor Name 04/23/2022 1 [facility] - [employer] - [employer] Korin Art [id number] Korin Art 12/12/2022 1 [facility] - [employer] - [employer] Korin Art [id number] Korin Art 12/12/2022 2 [facility] Korin Méndez [id number] Korin Art 02/21/2023 1 [facility] - [employer] - [employer] Korin Art [id number] Korin Art 02/21/2023 2 [facility] Korin Méndez [id number] Korin Art 03/19/2023 1 [facility] - [employer] - KHADIJAH Art [id number] Korin Art 06/12/2024 1 [facility] [employer] - KHADIJAH Art [id number] Korin Art Notes Date Note Type Note Provider Name and Address Organization Details Recorded Time 04/23/2022 text/html Here today for colposcopy evaluation of small black lesion on cervix. EZRA Andrew- [address], [place], [address], [facility] 04/24/2022 09:41:42 12/12/2022 text/html 37yoPresents for evaluation of irregular periods and mood changesPeriods are slightly more painful, lasting slightly longer than previouslyessure in 2019 for [facility]as noticed mood changes 1 week prior to her periods. Angry often, anxiety, crying spells. Symptoms resolve after her period is over.Has had thoughts of harming herself in the past, no recent thoughts. She has never had a plan. States she would never go through with harming herself.On wellbutrin through PCP, states this used to help her symptoms but no longer helping as much as it use to. Tried Lexapro in the past and states it made her have no feelings EZRA Lugo [address], [place], [address], [facility] 12/12/2022 16:44:07 03/19/2023 text/html 32yopresents for med checkstarted [facility] her [facility]!periods improved, mood prior to her periods is much betterfeeling very happy with these positive changesdenies any thoughts of harming herself or others EZRA Lugo [address], [place], [address], [facility] 03/19/2023 17:30:13 06/12/2024 text/html Presents today f or her annual well-woman exam. Denies abnormal vaginal discharge. She is sexually active and denies dyspareunia. She is using Essure for contraception, and she states that she is satisfied with this method. She has not noticed any changes or masses in her breasts. LMP 05/29/24. Periods are Q30 days and last 3 days. Flow is moderate, no intermenstrual spotting. FE MCKEON MD [address], [place], [address], [facility] 06/12/2024 16:01:06 OBGyn Episode Ob Episode Information Episode Created Date Number of Fetuses Patient Bloodtype Patient rh Status Prepregnancy Weight lbs Domestic Partner Domestic Partner Phone Father Name Manager Work Status 03/15/20 22 1 CLOSED Fetus Data First Name Last Name Admitted to NICU Weight (g) Sex Living Outcome Pediatric Complications Fetus ID Race Codes Race Delivery Type M [id number] Vaginal Delivery Eugenio Calculation Initial Eugenio Date Initial Exam [...]
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
--- OUTSIDE RECORDS SUMMARY | 2024-10-01 06:35 | XMS_ITS | Clinical Summary ---
Author Organization [facility] Address [address] [place] [address] Phone Care Team Providers Care Shorer Name Role Phone DESIRE ANGEL MD Primary Care Provider [phone] Reason for Visit and Chief Complaint * PHONE CALL Problems Includes: Problems addressed during this encounter and other active Problems All Visits Onset Date Resolved Date Provider Condition S tatus Adjustment Disorder with Anxiety 08/27/2016 DESIRE ANGEL MD Active Last Documented On 08/27/2016 11:28PM ; [facility] Note: Unchanged Herpes Simplex Type I 08/27/2016 DESIRE ANGEL MD Active Last Documented On 08/27/2016 11:28PM ; [facility] Note: Unchanged Herpes Simplex Type II 08/27/2016 DESIRE ANGEL MD Active Last Documented On 08/27/2016 11:28PM ; [facility] Note: Unchanged Common Migraine Without Aura Without Intractable Migraine 08/27/2016 DESIRE ANGEL MD Active Last Documented On 08/27/2016 11:28PM ; [facility] Note: Unchanged Nicotine Dependence in Remission 08/27/2016 DESIRE ANGEL MD Active Last Documented On 08/27/2016 11:29PM ; [facility] Note: Unchanged - 5 PACK YR HX, [...] Documented On 07/18/2023 9:11AM By Patti Montana [facility] ; [facility] hydrOXYzine HCl 25 MG Oral Tablet 12/14/2022 Provider: ULISES HODGES [facility] Diagnosis: Adjustment disor rodney with anxiety 1 tab up to 3 times daily as needed for anxiety. may cause drowsiness Last Documented On 3:58PM By Ulises Hodges [facility] ; [facility] Slynd 4 MG Oral Tablet 12/14/2022 Provider: Diagnosis: Last Documented On 12/14/2022 3:31PM By REBECA BILLINGS Pineda ; [facility] Past Medications on file Fluconazole 150 MG Oral Tablet 09/19/2023 - 09/21/2023 Provider: CASANDRA TENORIO DNP Diagnosis: Acute serous rico tis media, bilateral take as directed 150mg PO ev joleen 72 hours x 2 doses Last Documented On 9:21AM By Casandra Tenorio DNP ; [facility] Medications Administered Includes: Administered Medications from this [...] 08/20/2016 Active Last Documented On 8:59AM ; [facility] Encounters Encounter Provider Location Date Check-In Time Check-Out Time Diagnosis * PHONE CALL DESIRE ANGEL MD 04/29/2023 8:10AM 11:59PM Insurance Includes: Active Insurance Policies Plan Name Member ID Group # Subscriber Relationship Effect irving Dates 1 - [employer] [id number] ELZA WHITE [facility] 2 [facility] [id number] ELZA WHITE Self Clinical Notes Includes: Clinical Notes from this encounter * Progress note Date Encounter Last Documented by 04/29/2023 * PHONE CALL Last documented on 04/29/2023; 8:42 AM, DESIRE ANGEL MD; [facility] Active Problems & Conditions [...]
--- OUTSIDE RECORDS SUMMARY | 2024-10-01 06:35 | XMS_ITS | Clinical Summary ---
Author Organization [facility] Address [address] [place] [address] Phone Care Team Providers Care Assurance Auditor Name Role Phone DESIRE ANGEL MD Primary Care Provider [phone] Reason for Visit and Chief Complaint The Chief Complaint is: Fever, sore throat, no appetite, ears feel full, congestion and fatigue. Symptoms started on 09-16-23 Problems Includes: Problems addressed during this encounter and other active Problems All Visits Onset Date Resolved Date Provider Condition S tatus Adjustment Disorder with Anxiety 08/27/2016 DESIRE ANGEL MD Active Last Documented On 08/27/2016 11:28PM ; [facility] Note: Unchanged Herpes Simplex Type I 08/27/2016 DESIRE ANGEL MD Active Last Documented On 08/27/2016 11:28PM ; [facility] Note: Unchanged Herpes Simplex Type II 08/27/2016 DESIRE ANGEL MD Active Last Documented On 08/27/2016 11:28PM ; [facility] Note: Unchanged Common Migraine Without Aura Without Intractable Migraine 08/27/2016 DESIRE ANGEL MD Active Last Documented On 08/27/2016 11:28PM ; [facility] Note: Unchanged Nicotine Dependence in Remission 08/27/2016 DESIRE ANGEL MD Active Last Documented On 08/27/2016 11:29PM ; [facility] Note: Unchanged - 5 PACK YR HX, QUIT Plan of Treatment - Return to the clinic if condition worsens or new symptoms arise - Last Documented On 09/19/2023 9:12AM ; [facility] - Patient will call for appointment as needed - Last Documented On 09/19/2023 9:12AM ; [facility] Assessments Includes: Assessments from this encounter Findings - [H65.03 - Acute serous otitis media, bilateral] Acute serous otitis media of both ears - Last Documented On 09/19/2023 9:12AM ; [facility] - [U07.1 - COVID-19] Acute COVID-19 infection - Last Documented On 09/19/2023 9:12AM ; [facility] Medical Equipment - Implanted Devices Includes: Current Devices No Medical Equipment Recorded Medications Includes: Medications discussed during this encounter and other current Medications New / Renewed during this visit CASANDRA TENORIO DNP on 09/19/2023 Fluconazole 150 MG Oral Tablet Provider: CASANDRA Shepherd [employer] 2 day supply: 2 tablet, 0 refills Diagnosis: Acute serous otitis media, bilateral take as directed 150mg PO ev joleen 72 hours x 2 doses Pharmacy: [address], [id number] - Last Documented On 9:21AM By Casandra Tenorio DNP ; [facility] Current Medications (continue as prescribed) buPROPion HCl ER (XL) 300 MG Oral Tablet Extended Release 24 Hour 07/18/2023 Provider: DESIRE ANGEL MD Diagnosis: Generalized anxi ety disorder TAKE 1 TABLET BY MOUTH DAILY Last Documented On 07/18/2023 9:11AM By Patti Montana Pineda ; [facility] hydrOXYzine HCl 25 MG Oral Tablet 12/14/2022 Provider: ULISES GONG Diagnosis: Adjustment disor rodney with anxiety 1 tab up to 3 times daily as needed for anxiety. may cause drowsiness Last Documented On 3:58PM By Ulises GONG ; [facility] Slynd 4 MG Oral Tablet 12/14/2022 Provider: Diagnosis: Last Documented On 12/14/2022 3:31PM By REBECA MENDOZA ; [facility] Medications Administered Includes: Administered Medications from this encounter No Administered Medications Recorded Vital Signs Includes: Vital Signs from this encounter Vital Name 09/19/2023 08:57A Pulse Rate-Sitting (bpm) 84 Temp-Oral (F) 98.3 Height (in) 67 Weight (lb) 178.6 Body Mass Index 28 Body Surface Area 1.9 Oxygen Saturation (%) 98 Last Documented: On 09/19/2023 8:59AM ; [facility] Results Includes: Results discussed during this encounter Group A strep [facility] Ordered by CASANDRA TENORIO DNP on Collected: Reported: 09/19/2023 09:00 Last Documented On 3 9:02AM ; [facility] Reviewed on 09/19/2023; All test results are final unless otherwise noted. Rapid Strep Negative N (Normal) Last Documented On 3 9:01AM ; [facility] LOT # AND EXP. DATE [id number] 02-14-26 N (Normal) Last Documented On 3 9:01AM ; [facility] INT. QC ACCEPTABLE? yes N (Normal) Last Documented On 3 9:01AM ; [facility] SARS COVID-19 FLU A & B [facility] Ordered by CASANDRA TENORIO DNP on Collected: Reported: 09/19/2023 09:01 Last Documented On 3 9:02AM ; [facility] Reviewed on 09/19/2023; All test results are final unless otherwise noted. COVID Positive A (Abnormal) Last Documented On 3 9:01AM ; [facility] INFLUENZA A Negative (Negative) N (Normal) Last Documented On 3 9:01AM ; [facility] INFLUENZA B Negative (negative) N (Normal) Last Documented On 3 9:01AM ; [facility] INT. QC ACCEPTABLE? yes N (Normal) Last Documented On 3 9:01AM ; [facility] LOT # & EXP. DATE [id number] 07-24-24 N (Normal) Last Documented On 3 9:01AM ; [facility] History of Present Illness Includes: History [...] 09/19/2023 Last Documented On 3 9:12AM ; [facility] Smoking Status Unknown Procedures and Surgical History Includes: Procedures from this encounter Procedures Code Diagnosis Performing Provider Service L ocation Service Date use of tobacco assessment performed 1000F Last Documented On 3 8:59AM ; [facility] review of medications documented 1160F Last Documented On 3 8:59AM ; [facility] Clinical summary provided to patient Last Documented On 3 9:07AM ; [facility] Medical History Includes: Medical History addressed [...] Active Last Documented On 3 8:59AM ; [facility] Encounters Encounter Provider Location Date Check-In Time Check-Out Time Diagnosis COVID SICK VISIT- ESTABLISHED PATIENT CASANDRA S JONA LOPEZ [facility] 09/19/20 8:41AM 9:06AM Otitis Media Acute Serous Both Ears,Coronavi aye Covid-19 Infection Acute Insurance Includes: Active Insurance Policies Plan Name Member ID Group # Subscriber Relationship Effect irving Dates 1 - [employer] [id number] KORIN WHITE Self 2 - [facility] [id number] KORIN WHITE Self Clinical Notes Includes: Clinical Notes from this encounter * Progress note Date Encounter Last Documented by 09/19/2023 COVID SICK VISIT- ESTABLISHED YUSUF SANDOVAL Last documented on 09/19/2023; 9:12 AM, CASANDRA TENORIO DNP; [facility] Chief Complaint The Chief Complaint [...] Negative Normal LOT # AND EXP. DATE [id number] 02-14-26 Normal INT. QC ACCEPTABLE? yes Normal - Test: SARS COVID-19 FLU A & B Report Date: 09/19/2023 COVID Positive Abnormal INFLUENZA A Negative Normal INFLUENZA B Negative Normal INT. QC ACCEPTABLE? yes Normal LOT # & EXP. DATE [id number] 07-24-24 Normal Assessment - [H65.03 - Acute [...]
--- OUTSIDE RECORDS SUMMARY | 2024-10-01 06:35 | XMS_ITS ---
Care Plan - [facility] Created on: October 01, 2024 ELZA HWITE : 1990 Sex: Female Author Organization [facility] Address [address] [place] [address] Phone Care Team Providers Care Deicer Inspector Pneumatic Name Role Phone STANLEY TSE, DESIRE Salomon Primary Care Provider [phone]
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
--- OUTSIDE RECORDS SUMMARY | 2024-10-01 06:36 | XMS_ITS | Clinical Summary ---
Author Organization [facility] Address [address] [place] [address] Phone Care Team Providers Care Commercial Real Estate Sales Manager Name Role Phone DESIRE ANGEL MD Primary Care Provider [phone] Reason for Visit and Chief Complaint The [...] Active Last Documented On 08/27/2016 11:28PM ; [facility] Note: Unchanged Nicotine Dependence in Remission 08/27/2016 DESIRE ANGEL MD Active Last Documented On 08/27/2016 11:29PM ; [facility] Note: Unchanged - 5 PACK YR HX, QUIT Plan of Treatment Rapid COVID testing was negative. Discussed OTC medications as needed for symptoms. Follow up if symptoms worsen or do not improve. - Last Documented On 06/14/2022 5:08PM ; [facility] Assessments Includes: Assessments from this encounter Findings - Contact with and (Suspected) exposure to COVID-19 [Z20.822 - Contact with and (suspected) exposure to COVID-19] - Last Documented On 06/14/2022 5:08PM ; [facility] - Acute serous otitis media [H65.01 - Acute serous otitis media, right ear] - Last Documented On 06/14/2022 5:08PM ; [facility] - Acute sinusitis [J01.90 - Acute sinusitis, unspecified] - Last Documented On 06/14/2022 5:08PM ; [facility] Medical Equipment - Implanted Devices Includes: Current Devices No Medical Equipment Recorded Medications Includes: Medications discussed during this encounter and other current Medications New / Renewed during this visit CASANDRA MANCERA on 06/14/2022 Amoxicillin-Pot Clavulanate 875-125 MG Oral Tablet Provider: CASANDRA MANCERA 10 day supply: 20 tablet, 0 refills Diagnosis: Acute sinusitis, unspecified One tablet twice a day Pharmacy: [facility] [address], [id number] - Last Documented On 12/14/2022 3:29PM By REBECA MENDOZA ; [facility] Current Medications (continue as prescribed) buPROPion HCl ER (XL) 300 MG Oral Tablet Extended Release 24 Hour 07/18/2023 Provider: DESIRE ANGEL MD Diagnosis: Generalized anxi ety disorder TAKE 1 TABLET BY MOUTH DAILY Last Documented On 07/18/2023 9:11AM By Patti MENDOZA ; [facility] hydrOXYzine HCl 25 MG Oral Tablet 12/14/2022 Provider: ULISES GONG Diagnosis: Adjustment disor rodney with anxiety 1 tab up to 3 times daily as needed for anxiety. may cause drowsiness Last Documented On 3:58PM By Ulises GONG ; [facility] Slynd 4 MG Oral Tablet 12/14/2022 Provider: Diagnosis: Last Documented On 12/14/2022 3:31PM By REBECA MENDOZA ; [facility] Past Medications on file Fluconazole 150 [...] 97 Last Documented: On 06/14/2022 4:06PM ; [facility] Results Includes: Results discussed during this encounter SARS COVID-19 FLU A & B [facility] Ordered by CASANDRA CONNORSP-C on 0 06/14/2022 Collected: Reported: 06/14/2022 16:18 Last Documented On 2 4:24PM ; [facility] Reviewed on 06/14/2022; All test results are final unless otherwise noted. COVID NEG N (Normal) Last Documented On 2 4:24PM ; [facility] INFLUENZA A NEG (Negative) N (Normal) Last Documented On 2 4:24PM ; [facility] INFLUENZA B NEG (negative) N (Normal) Last Documented On 2 4:24PM ; [facility] INT. QC ACCEPTABLE? YES N (Normal) Last Documented On 2 4:24PM ; [facility] LOT # & EXP. DATE [id number] 10/30/2022 N (Normal) Last Documented On 2 4:24PM ; [facility] History of Present Illness Includes: History of [...] worsen Last Documented On 2 4:15PM ; [facility] Medical History Includes: Medical History addressed [...] 8:59AM ; [facility] Encounters Encounter Provider Location Date Check-In Time Check-Out Time Diagnosis COVID SICK VISIT- ESTABLISHED PATIENT CASANDRA BOWENSCLAIR LOGISTICS MANAGER-C [facility] 06/14/20 22 3:46PM 4:18PM Contact with and (Suspected) Exposure To Covid-19,Otit is Media Acute Serous,Sinusi tis Acute Insurance Includes: Active Insurance Policies Plan Name Member ID Group # Subscriber Relationship Effect irving Dates 1 - [facility] [id number] KORIN Butt 2 [facility] [id number] KORIN Butt Clinical Notes Includes: Clinical Notes from this encounter No Clinical Notes Recorded
== END 2024-09-24 08:44 | disposition home or self-care (01) ==
PROVIDERS: Emergency Provider Nurse Practitioner
DX: R00.0 Tachycardia, unspecified (principal)
CPT/HCPCS: 93005; 99213; G0463

== ENCOUNTER 2025-09-14 00:32 | Day surgery (SDC) | payer OTHER, SELFPAY ==
[2025-09-09 15:15] VITALS: BMI 30.1
--- NOTE | 2025-09-09 15:15 | PC.NURSE ---
[facility] has started construction of its new state of the art ER which will open Spring 2026. With this, we anticipate parking may be a challenge for some our surgical patients and families. Parking spaces are limited but are available for all Surgical, obstetrics, and ER patients sharing this lot. If you arrive and find you are having a hard time finding a parking space, please note that we understand the challenges, please drive around the hospital and park near Hospital Entrance 1. When you enter this entrance, you can ask a volunteer to direct or take you back to the surgical waiting area to check in. We appreciate everyone?s understanding of these expected challenges while we build for your future. Report to the Outpatient Waiting Room, entrance under the green pavilion located off [address], at time _0700_ on date _[phone]_. Planned Procedure Time: _0900_.? Time changes happen often and if your time is changed the preop area will call you the afternoon before. - You and your visitor will be asked to self-screen and do not enter if you have any COVID symptoms. Please call surgeon if you need to reschedule. - A mask is optional within the hospital at this time. Patients may have clear liquids (water, carbonated beverages, clear teas, apple juice) until 3 hours prior to surgery with a maximum of 20 ounces. - No food from midnight until time of surgery and no smoking, or chewing tobacco (or any form of nicotine). No chewing gum, candy or mints. Take only the following medications with a SIP of water on the morning of surgery: ___Propanolol, Pristiq, and Aripiprazole DO NOT STOP ANY OF YOUR OTHER PRESCRIPTION MEDICATIONS PRIOR TO SURGERY EXCEPT THE FOLLOWING Hold all vitamins and supplements for 3 days per anesthesiologist. Medications to discontinue per physician Date to take last dose Please no make-up, nail lebanese, hairspray, perfume, deodorant, or body powder the day of surgery.? No jewelry (including any body piercings) or valuables the day of surgery, leave them at home.? Please take a shower or bath the night before, or the morning of, surgery with an antibacterial soap.? Wear comfortable, loose fitting clothing.? - Jewelry must be removed prior to entering the operating room.? Rings and piercings that are not removed may be cut off. - The hospital will not accept responsibility for valuables.? - Please leave all valuables, including medications, at home the day of surgery. If you are going home after surgery, a licensed driver medic must drive you home.? - NO public transportation without another adult if you receive anesthesia. - We recommend that an adult stay with you for 24 hours following discharge. - We also recommend that you do not drive, make important decision, drink alcoholic beverages, or take any drugs that were not prescribed by your health care provider for at least 24 hours after your discharge time. Follow any additional instructions given to you from your surgeon. Telephone instructions given to __Korin__and asked if any additional questions and then verbalized understanding. Patient advised to call surgeon office or pre surgery nurse liaison [phone] if any additional questions.
[2025-09-14] VITALS (7 sets, daily range): BP systolic 103–125; BP diastolic 46–68; PULSE 60–72; RESP 13–24; TEMP 36.3–37; O2SAT 96–100; BMI 30.6
--- OUTSIDE RECORDS SUMMARY | 2025-09-14 00:36 | XMS_ITS | Clinical Summary ---
Author Organization [facility] Address [address] [place] [address] Care Team Providers Care Supervisor Tower Name Role Phone Maximiliano Valerio MD Primary Care Provider [phone] Allergies Active Allergy Reactions Criticality Noted Date Comments Buspirone Iodine Medications buPROPion XL (WELLBUTRIN XL) 300 mg 24 hr tablet 12/18/2022 Active hydrOXYzine (ATARAX) 25 mg tablet 12/14/2022 Active drospirenone, contraceptive, (Slynd) tablet tablet 1 each (4 mg total) 12/14/2022 Active Active Problems Problem Noted Date Diagnosed Date Tobacco use 07/07/2018 Adjustment disorder with anxiety 08/27/2016 Overview (12/11/2021): Note: Unchanged Nicotine dependence in remission 08/27/2016 Overview (12/11/2021): Note: Unchanged - 5 PACK YR HX, QUIT 06/08 Migraine without aura and responsive to treatmen t 08/27/2016 Overview (12/11/2021): Note: Unchanged Herpes simplex type 2 infection 07/26/2016 Overview (12/11/2021): Note: Unchanged Note: Unchanged Surgical History Surgery Date Site/Laterality Comments TUBAL LIGATION VULVA SURGERY Medical History Medical History Date Comments Anxiety Family History Medical History Relation Name Comments Diabetes Father gastric and esophageal canncer Father's Sister 1 Esophageal cancer Father's Sister 2 Leukemia Maternal Grandmother Fibromyalgia Mother Relation Name Status Comments Father Father's Sister 1 Father's Sister 2 Alive Maternal Grandmother Mother Social History Tobacco Use Types Packs/Day Years Used Date Smoking Tobacco: Every Day Cigarettes 0.5 10 Started: 2005; Last attempted to quit: 2015 Vaping Smokeless Tobacco: Never Tobacco Cessation:Ready to Q uit: Not Asked; Counseling Given: Not Answered Alcohol Use Standard Drinks/Week Comments Yes 0 (1 standard drink = 0.6 oz pur e alcohol) occasionally AUDIT-C Answer Date Recorded Q1: How often do you have a drink containing alc ohol? 2-4 times a month 06/21/2022 Average Number of Drinks Not on file 022 Frequency of Binge Drinking Not on file 05/25 Personal Safety Answer Date Recorded Getting School Help Needed Not on file 04/01 Comments No Sex and Gender Information Value Date Recorded Sex Assigned at Not on file Legal Sex Female 11:22 AM DIRECTOR OF EXHIBIT DEVELOPMENT Gender Identity Not on file Sexual Orientation Not on file Last Filed Vital Signs Vital Sign Reading Time Taken Comments Blood Pressure 137/76 04/01/2023 7:08 PM CDT Pulse 75 04/01/2023 7:08 PM CDT Temperature 36.7 C (98.1 F) 04/01/2023 7:08 PM CDT Respiratory Rate 18 04/01/2023 7:08 PM CDT Oxygen Saturation 100% 04/01/2023 4:45 PM CDT Inhaled Oxygen Concentration - - Weight 73 kg (161 lb) 07/25/2023 9:52 AM CDT Height 170.2 cm (5' 7) 07/25/2023 9:52 AM CDT Body Mass Index 25.22 07/25/2023 9:52 AM CDT Plan of Treatment Health Maintenance Due Date Last Done Comments Cervical Cancer Screening 1989 Depression Screening 1989 Hepatitis C Screening 1989 Varicella Vaccines (1 of 2 - 13+ 2-dose series) 2002 Hepatitis B Screening 2007 Regular Well Visit/Exam 18-64 2007 Pneumococcal vaccine <65 (1 of 2 - PCV) 2008 HPV Vaccines (1 - 3-dose SCDM series) 2016 Influenza Vaccine (#1) 2025 08/11/2007 DTaP/Tdap/Td Vaccine (3 - Td or Tdap) 04/10/2028, 11/12/2014 Insurance [employer] [facility] Care Teams Supervisor Tower Relationship Specialty Start Date End Date Maximiliano Valerio MD PCP - General 12/19/16
--- OUTSIDE RECORDS SUMMARY | 2025-09-14 00:36 | XMS_ITS | Clinical Summary ---
Author Organization [facility] [employer] [place] Address [address] [facility] [place] [address] Care Team Providers Care Deburrer Machine Name Role Phone Maximiliano Valerio MD Primary Care Provider [phone] Allergies Active Allergy Reactions Criticality Noted Date Comments Buspirone Unknown 09/09/2017 Medications buPROPion HCL (WELLBUTRIN XL) 300 mg Extended Release 24 hour tablet Take 300 mg by mouth daily in the morning. Active albuterol sulfate 90 mcg/Actuation inhalerIndicati ons:Cough Take 2 Puffs by inhalation every 6 hours as needed for Shortness of Breath. 18 Gram 2 Active benzonatate (TESSALON) 200 mg capsuleIndicati ons:Cough Take 1 Capsule (200 mg) by mouth 3 times daily as needed for Cough. 30 Capsule 2 Active Active Problems Problem Noted Date Diagnosed Date Tobacco use 07/07/2018 Encounters Date Type Department Care Team Description 08/24/2025 External Device Data [facility] Provider, Abstract 07/13/2025 External Device Data [facility] Provider, Abstract from Last 3 Months Immunizations Immunization Administration Dates Next Due (ADACEL/BOOSTRIX)(10 YR UP) TDAP VACCINE, 0.5ML, IM 04/10/2018 Family History Medical History Relation Name Comments Asthma Brother Thyroid Disease Brother Diabetes Father Alcohol abuse Maternal Grandfather Diabetes Maternal Grandmother Heart Disease Maternal Grandmother Hypertension Maternal Grandmother Leukemia Maternal Grandmother Other Mother Fibromyalgia Pancreatic Cancer Paternal Grandfather Unknown Paternal Grandfather Arthritis-rheumatoid Paternal Grandmother No Known Problems Son Relation Name Status Comments Brother Alive Father Alive Maternal Grandfather Maternal Grandmother Alive Mother Alive Paternal Grandfather Paternal Grandmother Alive Son Alive Social History Tobacco Use Types Packs/Day Years Used Date Smoking Tobacco: Every Day Cigarettes Smokeless Tobacco: Never Alcohol Use Standard Drinks/Week Comments Yes 0 (1 standard drink = 0.6 oz pur e alcohol) occasional Comments No Sex and Gender Information Value Date Recorded Sex Assigned at Not on file Legal Sex Female 10:50 AM NEWS EDITOR Gender Identity Not on file Sexual Orientation Not on file Last Filed Vital Signs Vital Sign Reading Time Taken Comments Blood Pressure 118/70 01/29/2025 8:57 AM CDT Pulse 87 08/25/2019 9:07 AM NEWS EDITOR Temperature 37.1 C (98.7 F) 06/09/2020 11:03 AM CDT Respiratory Rate 20 08/25/2019 9:07 AM NEWS EDITOR Oxygen Saturation 99% 08/25/2019 9:07 AM NEWS EDITOR Inhaled Oxygen Concentration - - Weight 88.5 kg (195 lb) 01/29/2025 8:57 AM CDT Height 170.2 cm (5' 7) 01/29/2025 8:57 AM CDT Body Mass Index 30.54 01/29/2025 8:57 AM CDT Plan of Treatment Health Maintenance Due Date Last Done Comments Pre-Diabetes and Diabetes Screening 1989 HEPATITIS B VACCINES (1 of 3 - 19+ 3-dose series) 2008 HPV/Cotest (21-29) 2010 HPV/Cotest (30-65) 2019 INFLUENZA VACCINE (#1) 2025 CERVICAL CANCER SCREENING 06/12/2027 PAP SMEAR 06/12/2027 06/12/2024, 02/22, 05/24/2016 (Previously completed) DTAP/TDAP/TD VACCINES (2 - T d or Tdap) 04/10/2028 04/10/2018 HPV VACCINES (No Doses Required) Completed Insurance [employer] OPEN [employer]ESS [facility] OPEN ACCESS * Guarantor: [employer] Account Type Relation to Patient Date of Phone Billing Address Corporate Employer ATTN: [employer] [address] [address] Care Teams Deburrer Machine Relationship Specialty Start Date End Date Maximiliano Valerio MD [address] [place] [id number] PCP - General Family Practice 01/29/25
--- OUTSIDE RECORDS SUMMARY | 2025-09-14 00:36 | XMS_ITS | Clinical Summary ---
Author Organization [facility] Address [address] [place] [address] Phone Care Team Providers Care Staff Physical Therapist Name Role Phone Maximiliano Valerio MD Primary Care Provider [phone] Allergies Active Allergy Reactions Criticality Noted Date Comments Buspirone Other (see Comments) Medium 08/20/2016 Pt becomes hypertensive after taking this medication. Medications propranolol (INDERAL) 10 MG Tablet 5 Active Desvenlafaxine Succinate 50 MG TABLET SR 24 HR 5 Active ARIPiprazole (ABILIFY) 2 MG Tablet Take 2 mg by mouth daily. 5 Active buPROPion (WELLBUTRIN) 300 MG TABLET SR 24 HR XL tablet 3 09/01/20 25 Discontinue d(Therapy completed) Drospirenone (Slynd) 4 MG Tablet Slynd 4 MG Oral Tablet QTY: 0 tablet Days: 0 Refills: 0 Written: 12/14/22 Patient Instructions : 3 09/01/20 25 Discontinue d(Therapy completed) amoxicillin (AMOXIL) 875 MG TabletIndicatio ns:Acute non-recurrent maxillary sinusitis Take 1 Tablet by mouth 2 times daily for 10 days. 20 Tablet 5 09/11/20 25 Active Problems Problem Noted Date Diagnosed Date Tobacco use 07/07/2018 Adjustment disorder with anxiety 08/27/2016 Overview (04/01/2023): Note: Unchanged Note: Unchanged Migraine without aura and responsive to treatmen t 08/27/2016 Overview (04/01/2023): Note: Unchanged Note: Unchanged Encounters Date Type Department Care Team Description 09/01/2025 8:05 AM DIRECTOR PHARMACY SERVICES Urgent Care [facility] [address] [place] [address] Provider, Sg [facility] Productive cough (Primary Dx); Sore throat; Upper respiratory tract infection, unspecified type; Acute non-recurrent maxillary sinusitis Discharge Disposition: Discharged to home or Selfcare 09/01/2025 Travel from Last 3 Months Immunizations Immunization Administration Dates Next Due Influenza Vaccine,unspecified Formulation 2006 TDAP Vaccine 04/10/2018,11/12/2014 Social History Tobacco Use Types Packs/Day Years Used Date Smoking Tobacco: Former Cigarettes Smokeless Tobacco: Never Alcohol Use Standard Drinks/Week Comments Yes 0 (1 standard drink = 0.6 oz pur e alcohol) occasionally AUDIT-C Answer Date Recorded Q1: How often do you have a drink containing alcohol? Never 09/01/2025 Q2: How many drinks containi ng alcohol do you have on a typical day when you are drinking? Patient does not drink Q3: How often do you have si x or more drinks on one occasion? Never 09/01/2025 Comments No Sex and Gender Information Value Date Recorded Sex Assigned at Not on file Legal Sex Female 3:30 PM CDT Gender Identity Not on file Sexual Orientation Not on file Last Filed Vital Signs Vital Sign Reading Time Taken Comments Blood Pressure 106/66 09/01/2025 8:09 AM DIRECTOR PHARMACY SERVICES Pulse 91 09/01/2025 8:09 AM DIRECTOR PHARMACY SERVICES Temperature 37.1 C (98.8 F) 09/01/2025 8:09 AM DIRECTOR PHARMACY SERVICES Respiratory Rate 16 09/01/2025 8:09 AM DIRECTOR PHARMACY SERVICES Oxygen Saturation 98% 09/01/2025 8:09 AM DIRECTOR PHARMACY SERVICES Inhaled Oxygen Concentration - - Weight 86.6 kg (191 lb) 09/01/2025 8:09 AM DIRECTOR PHARMACY SERVICES Height - - Body Mass Index - - Plan of Treatment Health Maintenance Due Date Last Done Comments Hepatitis C Virus (HCV) Screening 1989 Varicella Immunization (1 of 2 - 13+ 2-dose series) 2002 Hepatitis B Immunization (1 of 3 - 19+ 3-dose series) 2008 Pap Smear 2010 Cervical Cancer Screening (CCS) 2019 HPV/Cotest 2019 Influenza Immunization (#1) 2025 08/11/2007 SARS-COV-2 Immunization ( season) 2025 08/07/2021, 07/17/2021 Td Immunization Every 10 Yea rs (Adults With 1 Tdap) 04/10/2028 04/10/2018, 11/12/2014 Respiratory Syncytial Virus (RSV) Immunization (Adult) (1 - 1-dose 75+ series) 2064 DTaP/Tdap/Td Immunization Discontinued 2017, 11/12/2014 TdaP Immunization Discontinued 04/10/2018, 11/12/2014 Human Papillomavirus (HPV) Immunization (No Doses Required) Completed Meningococcal Immunization (ACWY) Aged Out No longer eligible based on patient's age to complete this topic Pneumococcal Immunization Combined Aged Out No longer eligible based on patient's age to complete this topic Rotavirus Immunization Aged Out No lo nger eligible based on patient's age to complete this topic Procedures Procedure Name Priority Date/Time Associated Diagnosis Comments POC GROUP A STREP BY MOLECULAR Routine 09/01/2025 8:32 AM DIRECTOR PHARMACY SERVICES Sore throat POC INFLUENZA A AND B BY MOLECULAR Routine 09/01/2025 8:32 AM DIRECTOR PHARMACY SERVICES Productive cough Sore throat POC SARS-COV-2 BY MOLECULAR Routine 09/01/2025 8:32 AM DIRECTOR PHARMACY SERVICES Productive cough Sore throat from Last 3 Months Results * POC SARS-COV-2 BY MOLECULAR (09/01/2025 8:32 AM DIRECTOR PHARMACY SERVICES) SARSCOV2 Negative Negative, INVALID PROCEDURE CONTROL Valid 09/01/2025 8:32 AM DIRECTOR PHARMACY SERVICES Virginia Jarvis TRAIN OPERATIONS MANAGER, PHYSICIAN ANESTHESIOLOGIST POINT OF CARE TESTING ( MANUAL) Final Result * POC INFLUENZA A AND B BY MOLECULAR (09/01/2025 8:32 AM DIRECTOR PHARMACY SERVICES) INFLUENZA A RNA Negative Negative, Invalid INFLUENZA B RNA Negative Negative, Invalid PROCEDURE CONTROL Valid 09/01/2025 8:32 AM DIRECTOR PHARMACY SERVICES Virginia Jarvis APRN, PHYSICIAN ANESTHESIOLOGIST POINT OF CARE TESTING ( MANUAL) Final Result * POC GROUP A STREP BY MOLECULAR (09/01/2025 8:32 AM DIRECTOR PHARMACY SERVICES) STREP A DNA Negative Negative, Invalid PROCEDURE CONTROL Valid 09/01/2025 8:32 AM DIRECTOR PHARMACY SERVICES us Virginia Jarvis APRN, PHYSICIAN ANESTHESIOLOGIST POINT OF CARE TESTING ( MANUAL) Final Result from Last 3 Months Insurance [facility] Care Teams Staff Physical Therapist Relationship Specialty Start Date End Date Maximiliano Valerio MD [address] [place] [phone] PCP - General Family Medicine 07/23/20
--- OUTSIDE RECORDS SUMMARY | 2025-09-14 00:36 | XMS_ITS | Data Portability ---
Author Organization [facility] Address [address] [place] [address] Care Team Providers Care Food Beverage Server Name Role Phone DESIRE ANGEL Primary Care Provider Assessment Encounter Date Assessment Date Assessment LastModified by Organization Details LastModified Time 06/12/2024 06/12/2024 Annual gynecological exam performed. Patient will come back in a year unless there are new symptoms. [email or web address] Not available 06/12/2024 15:16:03 Plan of Treatment Reminders Order Date Submit Date Provider Last Modified By Organization Details Last Modified Time Details Appointments SURG Hysterosc opy 2024 09:00A Hasmukh SHEPARD MD Not available Not available Not available SURG POST OP 2024 08:45A Hasmukh SHEPARD MD Not available Not available Not available Lab urinalysi s, dipstick 2022 023 [email or web address] [place], [address], [place], [address], 02/21/2023 16:34:37 culture, urine 2022 023 [facility] (Lab), [address] [facility], [place], [address], 02/23/2023 06:42:28 Referral None recorded. Procedures None recorded. Surgeries salpingec rodney, laparosco pic (SURG) 2024 025 [id number] [facility], [facility] [address], [place], [address], 08/24/2025 13:09:57 hysterosc opy, with endometri al ablation (SURG) 2024 025 [id number] [facility], [address], [place], [address], 09/03/2025 08:56:39 Imaging None recorded. Medication Orders Slynd 4 mg (28) tablet 2022 023 [email or web address] [id number], [address], [place], [id number], 06/12/2024 15:19:01 Macrobid 100 mg capsule 2022 023 [email or web address] [id number], [address], [place], [id number], 08/09/2025 11:03:24 Slynd 4 mg (28) tablet 2022 023 [email or web address] [facility] #[id number], [address], [place], [id number], 06/12/2024 15:19:01 Patient TargetsNo targets recorded. Patient InstructionsNo instructions recorded. Reason for Referral None Reported. Results Created Date Observation Date Name Description Value Unit Range Abnormal Flag Note LastModifiedBy Organization Detail LastModifiedTime 02/22/2002/21/2023 CULTU RE: URINE result report SEE RESULT S BELOW Test: Cultu re: Urine Speci men Sourc e: Urine Voide d Speci men Type: Urine Speci men Date: 023 4:18 PM Resul t Date: 023 5:38 AM Resul t Statu s: Final resul t Abnor mal: No Resul ting Lab: [facility] [address] [facility] [address] Tel: CULTU RE ----- ----- ----- --- No growt h in 1 day (dete ction level of 10,00 0 colon ies / ml.) Not Available [facility] (Lab) [address], [place], [address], 02/23/2023 06:42:27 02/22/20 23 02/21/2023 urina lysis , dipst ick Leukocytes +1 Not Available [facility] [address], [place], [address], 02/21/2023 16:33:18 02/22/20 23 02/21/2023 urina lysis , dipst ick Nitrite normal Not Available [place] [address], [place], [address], 02/21/2023 16:33:18 02/22/20 23 02/21/2023 urina lysis , dipst ick Urobilinogen normal Not Available [facility], [place], [address], 02/21/2023 16:33:18 02/22/20 23 02/21/2023 urina lysis , dipst ick Protein trace Not Available [place] [address], [place], [address], 02/21/2023 16:33:18 02/22/20 23 02/21/2023 urina lysis , dipst ick pH 7 Not Available [place] [address], [place], [address], 02/21/2023 16:33:18 02/22/20 23 02/21/2023 urina lysis , dipst ick Blood trace Not Available [place] [address], [place], [address], 02/21/2023 16:33:18 02/22/20 23 02/21/2023 urina lysis , dipst ick Specific [place] 1.015 Not Available [facility] [address], [place], [address], 02/21/2023 16:33:18 02/22/20 23 02/21/2023 urina lysis , dipst ick Ketone normal Not Available [place] [address], [place], [address], 02/21/2023 16:33:18 02/22/20 23 02/21/2023 urina lysis , dipst ick Bilirubin normal Not Available [facility] [address], [place], [address], 02/21/2023 16:33:18 02/22/20 23 02/21/2023 urina lysis , dipst ick Glucose normal Not Available [place] [address], [place], [address], 02/21/2023 16:33:18 02/22/20 23 02/21/2023 urina lysis , dipst ick Appearance normal Not Available [facility] [address], [place], [address], 02/21/2023 16:33:18 02/22/20 23 02/21/2023 urina lysis , dipst ick Color normal Not Available [place] [address], [place], [address], 02/21/2023 16:33:18 06/12/20 24 06/12/2024 IMAGE GUIDE D PAP AND HPV REGAR DLESS image guided Pap, HPV regardless of Pap result SEE RESULT S BELOW CASE REPOR T: Cytol ogy Gynec ologi cate Repor t Case: [id number] Autho rihafsa g Provi rodney: Khang Simms MD Colle cted: 06/12 1542 Order ing Locat ion: [place] [facility] Recei katerine: 06/14 1227 First Scree n: Vanessa Cook ret, CT Rescr een: Marisa Baltazar Speci men: Lalito mcdermottg Pap - Image d, Cervi x STATE MENT OF ADEQU ACY: Satis facto ry for evalu ation Trans forma tion zone compo nent absen t The absen ce of an endoc ervic al compo nent was confi rmed by an addit ional screcary ner. ----- ----- ----- ----- ----- ----- ----- ----- ----- ----- ----- ----- ----- ----- ----- ----- ----- ---- FINAL DIAGN OSIS: Negat irving for Intra epith elial Ernie zambrano or Lucia sullivan ([facility]) . Elect jony goins d by Marisa Baltazar on 2023 at 8:32 [...] Neopl ian (if appli cable ): Signi fician t Clini cate Findi ngs: Other Histo [...] is recom aron d, as clini tico turner nted. Not Available [facility] (Lab) [address] [facility], [place], [address], 06/19/2024 21:36:09 Result Notes None recorded. Problems Name Problem SNOMED Code Status Onset Date Resolution Date Notes Provider Name and Address Organization Details Recorded Time Removal of intraute rine device Completed 201204/20/2022 REMOVAL OF IUD;Recor ded Elsewhere : No Locati on: [facility] So urce: EHR Chron ic: N Practic e ID: 0001 Bill able Time: 10:30:00 AM Maureen [facility] 2 17:40:06 Pregnanc y test negative [id number] Completed 201204/20/2022 examinati on or test, negative result;Re corded Elsewhere : No Locati on: [facility] So urce: EHR Chron ic: N Practic e ID: 0001 Bill able Time: 11:15:00 AM Maureen Tristan [facility] 2 17:40:06 Insertio n of intraute rine contrace ptive device Completed 201204/20/2022 INSERTION OF IUD;Recor ded Elsewhere : No Locati on: [facility] So urce: EHR Chron ic: N Practic e ID: 0001 Bill able Time: 11:15:00 AM Maureen batista [facility] 2 17:40:06 Vaginiti s and vulvovag initis Completed 201304/20/2022 Vaginitis ;Recorded Elsewhere : No Locati on: [facility] So urce: EHR Chron ic: N Practic e ID: 0001 Bill able Time: 01:00:00 PM Maureen batista [facility] 2 17:40:06 Proteinu bhumika [id number] Completed 201304/20/2022 Proteinur ia;Record ed Elsewhere : No Locati on: [facility] So urce: EHR Chron ic: N Practic e ID: 0001 Bill able Time: 01:00:00 PM Maureen Tristan [facility] 2 17:40:06 Hypertro phy of vulva [id number] Completed 201304/20/2022 Hypertrop hy of labia;Rec orded Elsewhere : No Locati on: [facility] So urce: EHR Chron ic: N Practic e ID: 0001 Bill able Time: 10:00:00 AM Maureen batista [facility] 2 17:40:06 Pre-surg joleen evaluati on Completed 201304/20/2022 Pre-opera tive examinati on, unspecifi ed;Record ed Elsewhere : No Locati on: [facility] So urce: EHR Chron ic: N Practic e ID: 0001 Bill able Time: 05:00:00 PM Maureen Tristan [facility] 2 17:40:06 Speciali zed medical examinat ion Completed 201404/20/2022 ROUTINE KNOWLEDGE ANALYST EXAMINATI ON;Record ed Elsewhere : No Locati on: [facility] So urce: EHR Chron ic: N Practic e ID: 0001 Bill able Time: 11:15:00 AM Maureen Tristan [facility] 2 17:40:06 Adult health examinat ion Completed 201404/20/2022 ROUTINE MEDICAL EXAM;Jarek rded Elsewhere : No Locati on: [facility] So urce: EHR Chron ic: N Practic e ID: 0001 Bill able Time: 11:15:00 AM Maureen Tristan [facility] 2 17:40:06 Venereal disease screenin g Completed 201404/20/2022 Screening examinati on for venereal disease;R ecorded Elsewhere : No Locati on: [facility] So urce: EHR Chron ic: N Practic e ID: 0001 Bill able Time: 11:15:00 AM Maureen Tristan [facility] 2 17:40:06 Screenin g for malignan t neoplasm of cervix Completed 201404/20/2022 Screening for malignant neoplasms of the cervix;Re corded Elsewhere : No Locati on: [facility] So urce: EHR Chron ic: N Practic e ID: 0001 Bill able Time: 11:15:00 AM Maureen Tristan [facility] 2 17:40:06 Speciali d medical examinat ion Completed 201404/20/2022 Other specified chlamydia l diseases; Recorded Elsewhere : No Locati on: [facility] So urce: EHR Chron ic: N Practic e ID: 0001 Bill able Time: 11:15:00 AM Maureen Tristan [facility] 2 17:40:06 Anxiety state [id number] Completed 201404/20/2022 Anxiety reaction; Recorded Elsewhere : No Locati on: [facility] So urce: EHR Chron ic: N Practic e ID: 0001 Bill able Time: 03:30:[address] Tristan [facility] 2 17:40:06 Ulcerati on of vulva 06136026 Completed 201404/20/2022 Ulceratio n of vulva;Rec orded Elsewhere : No Locati on: [facility] So urce: EHR Chron ic: N Practic e ID: 0001 Bill able Time: 01:30:00 PM [facility] 2 17:40:06 Contrace ptive sheath status 109268847 Completed 201404/20/2022 Encounter for routine checking of intrauter ine contracep dev;Recor ded Elsewhere : No Locati on: [facility] So urce: EHR Chron ic: N Practic e ID: 0001 Bill able Time: 01:30:00 PM [facility]ureen [facility] 2 17:40:06 Vaginola bial hernia Completed 201504/20/2022 Other specified noninflam matory disorders of vagina;Re corded Elsewhere : No Locati on: [facility] So urce: EHR Chron ic: N Practic e ID: 0001 Bill able Time: 01:00:00 PM [facility]ureen [facility] 2 17:40:[address] Concept Completed 201504/20/2022 Encntr for general adult medical exam w/o abnormal findings; Recorded Elsewhere : No Locati on: [facility] So urce: EHR Chron ic: N Practic e ID: 0001 Bill able Time: 01:00:00 PM [address]en Tristan [facility] 2 17:40:06 Pelvic and perineal pain 133562929 Completed 201504/20/2022 Pelvic and perineal pain;Jarek rded Elsewhere : No Locati on: [facility] So urce: EHR Chron ic: N Practic e ID: 0001 Bill able Time: 02:30:00 PM [address]ureen Tristan [facility] 2 17:40:06 Problem Notes None recorded. Procedures Surgical History Date Name Laterality Status Provider Name and Address Organization Details Recorded Time 06/12/20 24 Date of Last Pap Smear completed Tash Rendon [facility] 08/09/2025 11:04:57 04/23/20 22 Colposcopy completed Eliana Berrios [facility]- [address], [place], [address], [facility] 04/24/2022 09:40:08 09/23/19 19 ligation of bilateral fallopian tubes completed [facility] 03/15/2022 15:28:56 09/23/19 14 procedure on labia completed [facility] 03/15/2022 09:48:23 Imaging Results None recorded. Procedure Notes None recorded. Medical Equipment None Reported. Allergies Allergen ID Allergen Name Allergen Category Reaction Reaction Severity Criticality Documentation Date Start Date Code Code System Note Provider Name and Address Organization Details Recorded Time 36730 buspirone medicatio n Not available Not available Not available 04/23/2022 1827 RxNorm Maureen Tristan [facility] 2 17:18:55 20710 iodine medicatio n Not available Not available Not available 08/09/2025 5933 RxNorm Not Available chris - External Data Service - prod 5 03:18:51 30790 Buspar medicatio n Not available Not available Not available 08/09/2025 96783 0 RxNorm Not Available chris - External Data Service - prod 5 03:19:08 Medications Name Sig Start Date Stop Date Status Note LastModified by Organization Details LastModified Time Mirena 21 mcg/24 hr (up to 8 years) 52 mg intrauter ine device 03/15 completed Prescrib ed Elsewher e: Yes Loca tion: [facility] M odify By: [email or web address] trick En counter [...] Prescrib ed Elsewher e: Yes Loca tion: [facility] odify By: [email or web address] trick En counter DateTime : 02/08/20 16 02:30:00 PM Not Available Not Available Not Available acyclovir 400 mg tablet take 2 tablet by oral route 2 times every day for 5 days 08/01 completed Prescrib ed Elsewher e: No Locat ion: [facility] odify By: venancio alanis DateTime : 07/28/20 15 10:13:05 AM Not Available Not Available Not Available propranol ol 10 mg tablet TAKE 1 TABLET BY MOUTH TWICE DAILY NEEDED FOR PHYSICAL ANXIETY SYMPTOMS active Not Available Not Available No t Available amoxicill in 875 mg tablet TAKE 1 TABLET BY MOUTH TWICE DAILY FOR 10 DAYS active Not Available Not Available No t Available Metrogel Vaginal 0.75 % (37.5 mg/5 gram) insert 1 applicat orful by vaginal route every day at bedtime 07/27 completed Prescrib ed Elsewher e: No Locat ion: [facility] odify By: [email or web address] trick En counter DateTime : 05/31/20 15 10:31:43 AM Not Available Not Available Not Available Flagyl 500 mg tablet take 1 tablet by oral route 2 times every day 02/07 completed Prescrib ed Elsewher e: No Locat ion: [facility] odify By: [email or web address] trick En counter DateTime : 12/07/19 16 10:37:08 AM Not Available Not Available Not Available doxycycli ne monohydra te 100 mg capsule take 1 capsule by oral route 2 times every day for 10 days 02/11 completed Prescrib ed Elsewher e: No [facility] By: cmedical Encount er DateTime : 02/03/20 14 11:11:03 AM Not Available Not Available Not Available Prozac 20 mg capsule Take 1 capsule every day by oral route. 08/09 completed Not Available Not Available Not Available hydroxyzi ne HCl 25 mg tablet TAKE 1 TABLET BY MOUTH UP TO THREE TIMES DAILY NEEDED FOR ANXIETY. MAY CAUSE DROWSINE SS 08/09 completed Not Available Not Available Not Available Valtrex 500 mg tablet take 1 tablet by oral route 2 times every day for 3 days 07/28 completed Prescrib ed Elsewher e: No [facility] odify By: venancio alanis DateTime : 07/27/20 15 01:30:00 PM Not Available Not Available Not Available gabapenti n 100 mg capsule TAKE 1 CAPSULE BY MOUTH THREE TIMES DAILY 08/09 completed Not Available Not Available Not Available methylpre dnisolone 4 mg tablets in a dose pack FOLLOW PACKAGE DIRECTIO NS 03/15 completed Not Available Not Available Not Available Zoloft 25 mg tablet take 1 tablet by oral route every day 06/10 completed Prescrib ed Elsewher e: No Locat ion: [facility] odify By: [email or web address] trick En counter DateTime [...] Prescrib ed Elsewher e: No [facility] od[facility] By: cmedical Encount er DateTime : 01/22/20 14 01:30:00 PM Not Available Not Available Not Available escitalop carlton 10 mg tablet TAKE 1 TABLET BY MOUTH DAILY 03/15 completed Not Available Not Available Not Available bupropion HCl XL 300 mg 24 hr tablet, extended release TAKE 1 TABLET BY MOUTH DAILY 2024 active Not Available Not Available Not Avai lable bupropion HCl XL 150 mg 24 hr tablet, extended release TAKE 1 TABLET BY MOUTH DAILY 08/09 completed Not Available Not Available Not Available tinidazol e 500 mg tablet take 4 tablet (2G) by oral route every day with food 12/23 completed Prescrib ed Elsewher e: No Locat ion: [facility] M odify By: [email or web address] trick En counter DateTime : 10/30/19 14 01:00:00 PM Not Available Not Available Not Available nitrofura ntoin monohydra te/macroc rystals 100 mg capsule TAKE 1 CAPSULE BY MOUTH EVERY 12 HOURS FOR 7 DAYS 08/09 completed Not Available Not Available Not Available alprazola m 0.25 mg disintegr ating tablet take 1 tablet po prn for anxiety 06/10 completed Prescrib ed Elsewher e: No Locat ion: [facility] odify By: [email or web address] trick En counter DateTime : 05/27/20 10:25:37 AM Not Available Not Available Not Available aripipraz ole 2 mg tablet TAKE 1 TABLET BY MOUTH ONCE DAILY active Not Available Not Available No t Available desvenlaf axine succinate ER 50 mg tablet,ex tended release 24 hr TAKE 1 TABLET BY MOUTH ONCE DAILY IN THE MORNING active Not Available Not Available No t Available Slynd 4 mg (28) tablet Take 1 tablet by oral route for 84 days. 06/12 completed Not Available Not Available Not Available Vitals Date Recorded Body height Systolic And Diastolic Provider Name and Address Organization Details Last Updated DateTime 12/12/2022 170.18 cm 123/74 mm[Hg] [address] [facility] 12/12/2022 16:10:15 Date Recorded Body height Provider Name an d Address Organization Details Last Updated DateTime 02/21/2023 170.18 cm Nakia Soto [facility] 02/21/2023 16:32:41 Date Recorded Body height Body mass index (BMI) Body weight Systolic And Diastolic Provider Name and Address Organization Details Last Updated DateTime 03/19/2023 170.18 cm 22.1 kg/m2 82324.81 g 128/80 mm[Hg] Sofía Jad [facility] 03/19/2023 17:21:27 Date Recorded Body height Body mass index (BMI) Body weight Systolic And Diastolic Provider Name and Address Organization Details Last Updated DateTime 06/12/2024 170.18 cm 29.1 kg/m2 54987.18 g 133/79 mm[Hg] Vivian Villagran [facility] 06/12/2024 15:18:46 Date Recorded Body height Body mass index (BMI) Body weight Systolic And Diastolic Provider Name and Address Organization Details Last Updated DateTime 08/09/2025 170.18 cm 31.3 kg/m2 81464.47 g 146/88 mm[Hg] Tash Justice [facility] 08/09/2025 11:02:46 Social History Question Answer Notes LastModified by Organizat ion Details LastModified Time Tobacco Smoking Status Current Every Day Smoker [address] [facility] 03/15/2022 15:28:24 Are You Blind Or Do You Have Difficulty Seeing? No Information n ot available 03/15/2022 In The 14 Days Before Symptom Onset, Have You Had Close Contact With A Laboratory-confirm ed COVID-19 While That Case Was Ill? No [email or web address] Information n ot available 06/12/2024 In The 14 Days Before Symptom Onset, Have You Had Close Contact With A Person Who Is Under Investigation For COVID-19 While That Person Was Ill? No [email or web address] Information not available 06/12/2024 Have You Been To An Area Known To Be High Risk For COVID-19? No [email or web address] Information not available 06/12/2024 Are You Deaf Or Do You Have Serious Difficulty Hearing? No Information not available 03/15/2022 What Type Of Diet Are You Following? REGULAR Information n ot available 03/15/2022 Do You Have Difficulty Walking Or Climbing Stairs? No Information not available 03/15/2022 Sex: Unknown Functional Status Question Answer Note LastModified by Organizat ion Details LastModified Time What is your level of alcohol consumption? Occasional Information not available 03/15/2022 Are you able to walk independently without assistance or assistive devices? YESWOREST Information not available 03/15/2022 Are you able to care for yourself independently? Yes Information not available 03/15/2022 Do you have difficulty dressing, bathing, grooming, or toileting? No Information not available 03/15/2022 What is [...] Not available 02/22 09:52:58 Maternal Grandmother Malignant neoplasm of cervix uteri vschroedter Not available 0 03/15/2022 09:53:18 Maternal Grandmother Cyst of ovary vschroedter Not available 02/22 09:54:37 Maternal Grandmother Blood coagulation disorder vschroedter Not available 02/22 09:55:11 Maternal Grandmother Congenital heart disease vschroedter Not available 02/22 09:56:07 Mother Malignant neoplasm of cervix uteri vschroedter Not available 0 03/15/2022 09:53:42 Mother Cyst of ovary vschroedter Not available 02/22 09:54:37 Mother Blood coagulation disorder vschroedter Not available 02/22 09:55:11 Mother Female infertility vschroedter Not available 09:56:59 Paternal Aunt Malignant neoplasm of cervix uteri vschroedter Not available 0 03/15/2022 09:57:44 Son Anxiety disorder [email or web address] Not available 2023 15:19:57 Medical History Condition Response Allergies (Food, seasonal, environmental ) N Other N Drug/Latex Allergies/Reactions N Blood Transfusion N Breast Cancer N Dermatologic Disorders N Lung Disease N Defects or Inherited Disease N Breast Problem N Gestational Diabetes N Hematologic disorders N Anesthesia Complications N History of STI N Deep Vein Thrombosis N Polycystic ovary syndrome Y Anxiety Disorder Y Autoimmune disease N Arthritis N Polyps N Infertility N Acid Reflux (GERD) N History of abnormal pap N Cancer N Varicosities N Stroke N Neurologic/Epilepsy N Endometriosis N High Cholesterol N Fibromyalgia N Headaches Y Kidney Disease N Heart Problems N Thyroid Problems N Kidney or Bladder Problems N GI Problems N Eating Disorder N Anemia N Art (IVF or FET) N Psychiatric Illness N Ovarian Cancer N Diabetes N Pulmonary (TB, Asthma) N Hepatitis/Liver Disease N No Past Medical History N Eczema N Urinary Tract Infection N Abuse/Domestic Violence N Asthma N Trauma/Violence N Depression/ depression Y Heart Disease N Pre-Eclampsia N Hypertension N Osteoporosis N Thrombophilias N Gynecological History Statement/Question Response Abnormal Pap N Flow Heavy Date of LMP 08/04/2025 Was last menstrual period normal Y STIs/STDs Y HPV Vaccine N Duration of Flow (days) 4 Current Control Method Tubal Ligat ion Are cycles usually normal Y Frequency of Cycle (Q days) 28 Sexually Active? Y Menses Monthly Y Date of Last Pap Smear 06/12/2024 Sexual Problems? N Desired Control Method Ablation LMP Approximate Obstetrics History GPAL:G 1 P 0 0 0 1 Type Value Living 1 Total 1 Past Encounters Encounter ID Performer Location Encounter Start Date Encounter Closed Date Diagnosis/Indication Diagnosis SNOMED-CT Code Diagnosis ICD10 Code Diagnosis IMO Codes Diagnosis Note [id number] EZRA Lugo [place] [address] [address] 03/15/2022 14:56:49 03/16/2022 16:29:39 Irregular periods 19681729 N92.6 Take Calcium with Vitamin D 1200mg [...] of care. Mass of left breast 1224 432906 1703500 N63.20 Pain in pelvis 39962242 R10.2 [id number] Jesse Sheaprd MD [place] [address] [address] 03/20/2022 17:23:49 03/20/2022 18:16:25 Irregular periods 20524025 N92.6 R10.2 [id number] EZRA Lugo [place] [address] [address] 03/28/2022 15:49:08 04/03/2022 16:45:06 Pain in pelvis [id number] R10.2 We discussed normal appearing uterus and [...] of plan of care. Lesion of cervix [id number] N88.9 [id number] [facility] [address] [address] 04/23/2022 17:06:43 04/24/2022 15:35:50 Lesion of cervix [id number] N88.9 See procedure notes.Post -procedure instructio ns reviewed with understand ing verbalized .Will contact with results & next steps in plan of care. [id number] EZRA Lugo [place] [address],[place] [address] 12/12/2022 15:54:16 12/12/2022 17:02:50 Irregular periods [id number] N92.6 Today we discussed options to help manage PMDD and to help make her periods hog sawyer/le ss painfulNot a candidate for estrogen containing [...] to seek help/call 911. [facility] Time spent in visit is a total of 25 mins with at least 50% of visit consisting of counseling and review of plan of care. 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 F41.8 Premenstru al dysphoric disorder [id number] F32.81 Contracept ion care management [id number] Z30.9 [id number] Mare Pillai MOHIT [place] [address],[place] [address] 02/21/2023 15:36:02 02/21/2023 16:40:47 Urinary symptoms [id number] R39.9 Dysuria [id number] R30.0 [id number] Mare Pillai MOIHT [place] [address],[place] [address] 03/19/2023 17:15:21 03/19/2023 18:01:13 Irregular periods [id number] N92.6 Patient is here today for a [...] in 1 year or sooner if needed [id number] FE MCKEON MD [place] [address],[place] [address] 06/12/2024 15:02:33 06/12/2024 16:08:48 Gynecologic examination [id number] Z01.419 Well woman care- Cervical cancer screening: Pap smear obtained today, will follow up on the results with the patient as they become available- Breast cancer screening: mammogram not indicated- Colon cancer screening: does not qualify- STD testing: declined- hereditary cancer screening: does not qualify for testing [id number] Jesse Shepard MD [place] [address] [address] 08/09/2025 10:05:54 08/09/2025 11:46:31 Menorrhagia [id number] N92.0 This patient is a 35-year-ol d female presents for heavy vaginal bleeding. She has longstandi ng very heavy bleeding. Her menses are regular. However, they require double protection . Patient has accidents, getting blood on her bedding and clothing. Is affected work. She changes a pad or tampon every hour. She leaks blood around the pad and tampon. This bleeding has a profound impact on her quality of life and her activities of daily living. patient has pelvic pain. She has sharp pain on her left side with movement. She would like Essure coils removed. Pain is affecting quality of life and activities of daily living. We agreed to perform laparoscop ic bilateral salpingect dex with Essure removal and endometria l ablation with hysterosco py. The patient understand s the procedure. The procedure was described to the patient in great detail. the patient also understand s the risks. The risks were also explained in detail. She understand s that injuries May occur during surgery. She understand s these injuries can result in hospitaliz ation, more surgery, and severe illness. She understand s there is risk of hemorrhage and infection. SPENT OVER 30 MINUTES ON THIS PATIENT'S CARE IN TOTAL. [facility] [facility] [id number] Z30.09 [id number] Health Concerns Section Related Observation LastModified by Organization Detai ls LastModified Time None Recorded Concern Status LastModified by Organization Details LastModified Time None Recorded Advance Directives Directive None Recorded Payers Insurance Date Sequence Insurance Name Policy Number Policy Latham Covered Member ID Latham Member ID Guarantor Name 09/11/2025 1 [facility] [facility] [employer] - [facility] [id number] Korin Art [id number] Korin Art 09/13/2025 [address] [employer] - [employer] [facility] [id number] Korin Art [id number] Korin Art 08/08/2025 2 KHADIJAH Méndez [id number] Korin Art Notes Date Note Type Note Provider Name and Address Organization Details Recorded Time 12/12/2022 text/html 37yoPresents for evaluation of irregular [...] no feelings EZRA Lugo [address], [place], [address], [facility] 12/12/2022 16:44:07 03/19/2023 text/html 32yopresents for med [facility]started [facility] her [facility]!periods improved, mood prior to her periods is much betterfeeling very happy with these positive changesdenies any thoughts of harming herself or others EZRA Lugo [address], [place], [address], [facility] 03/19/2023 17:30:13 06/12/2024 text/html Presents today for her annual well-woman exam. Denies abnormal vaginal [...] spotting. FE MCKEON MD [address], [place], [address], [facility] 06/12/2024 16:01:06 08/09/2025 text/html This patient is a 35-year-old female presents for heavy vaginal bleeding. She has longstanding very heavy bleeding. Her menses are regular. However, they require double protection. Patient has accidents, getting blood on her bedding and clothing. Is affected work. She changes a pad or tampon every hour. She leaks blood around the pad and tampon. This bleeding has a profound impact on her quality of life and her activities of daily living. patient has pelvic pain. She has sharp pain on her left side with movement. She would like Essure coils removed. Pain is affecting quality of life and activities of daily living. We agreed to perform laparoscopic bilateral salpingectomy with Essure removal and endometrial ablation with hysteroscopy. The patient understands the procedure. The procedure was described to the patient in great detail. the patient also understands the risks. The risks were also explained in detail. She understands that injuries May occur during surgery. She understands these injuries can result in hospitalization, more surgery, and severe illness. She understands there is risk of hemorrhage and infection. Jesse Shepard MD [address], [place], [address], [facility] 08/09/2025 11:45:53 OBGyn Episode Ob Episode Information Episode Created Date Number of Fetuses Patient Bloodtype Patient rh Status Prepregnancy Weight lbs Domestic Partner Domestic Partner Phone Father Name Chemistry Account Manager Status 03/15/20 22 1 CLOSED Fetus Data First Name Last Name Admitted to NICU Weight (g) Sex Living Outcome Pediatric Complications Fetus ID Race Codes Race Delivery Type M [id number] Vaginal Delivery Eugenio Calculation Initial Eugenio Date [...]
[2025-09-14] MEDS: LACTATED RINGERS 1,000 ML 30 ML IV CONT ×2 (07:10→10:16)
--- NOTE | 2025-09-14 07:25 | WPDANESEPPF ---
Anes - Initial Pre Proc Eval Procedure: Operation Date: 09/14/25 09:00 Proposed Procedures p Hysteroscopy With Matilda Endometrial Ablation, - Jesse Shepard MD s Laparoscopic Bilateral Salpingectomy - Jesse Shepard MD Date/Time: 09/14/25 07:25 Surgeon: Jesse Shepard MD Pre Op Diagnosis: desires sterilization, menorrhagia Patient Data Age: 35 Gender: F Height: 1.7 m Weight: 87.3 kg Allergies Allergy/AdvReac Type Severity Reaction Status Date / Time buspirone Allergy Severe Hypertensio Verified 09/14/25 07:39 n Home Medications ?Medication ?Instructions ?Recorded ?Confirmed ?Type propranolol 10 mg tablet 10 mg PO Q12H PRN anxiety 09/24/24 09/14/25 History aripiprazole 2 mg tablet 2 mg PO DAILY 09/09/25 09/14/25 History desvenlafaxine succinate 50 mg 50 mg PO DAILY 09/09/25 09/14/25 History tablet,extended release 24 hr (Pristiq) Patient hx anesthesia problems: none Family hx anesthesia problems: none Results Review: All pre-operative results and documents have been reviewed as part of the pre-operative evaluation. [facility] Social History Social History Smoking status: Current every day smoker Tobacco type: e-cigarettes/vaping Substance use type: marijuana Other substance usage details: Here and there. Living arrangements: with family Spiritual care concerns: No Anes - Eval Final PreProcedure Day of Procedure 09/14/25 07:25 Patient weight: obese Heart: regular rate and rhythm Lungs: clear to auscultation Airway: Mallampati scale class II Neurological: alert and oriented Last oral intake: >/= 8 hours ASA classification: III Emergent: no Anesthetic plan: proceed Anesthesia type and monitoring: general ETT and standard monitoring Results Review: All pre-operative results and documents have been reviewed as part of the pre-operative evaluation. Informed Consent: The patient's anesthetic plan and its attendant risks and benefits were discussed with the patient/family/POA. Questions were solicited and answers provided to the satisfaction of the patient/family/POA.
[2025-09-14] MEDS: ACETAMINOPHEN 500 MG TABLET 1000 MG PO (07:28)
[2025-09-14] MEDS: KETOROLAC 15 MG/ML VIAL (*BKC) IV PUSH (07:28)
[2025-09-14 07:48] LABS: BEDSIDEPREGUCG Negative (Negative)
--- NOTE | 2025-09-14 08:19 | PM.IMHP2 ---
H&P: HPI History of Present Illness Date/Time: 09/14/25 08:19 Chief Complaint: Heavy vaginal bleeding and unwanted fertility Narrative: This patient is a 35-year-old female with menorrhagia and unwanted fertility. We agreed to perform laparoscopic bilateral salpingectomy and endometrial ablation with hysteroscopy. She understands the risks, benefits, and alternatives. She has completed informed consent process and is ready to proceed. The patient understands the details of the procedure. The procedure has been explained in detail. She understands the risks. She understands that injuries may occur that result in hospitalization, more surgery, and severe illness. She understands risk of hemorrhage and infection. She denies any chest pain or shortness of breath. She denies any nausea, vomiting, fever, chills. Review of Systems Review of Systems: All systems reviewed & are unremarkable except as noted in HPI and below Constitutional: Constitutional: Denies chills, Denies fatigue, Denies fever(s) and Denies weakness Eyes: Eyes: Denies blurry vision, Denies change in vision, Denies loss of peripheral vision, Denies loss of vision, Denies other visual disturbances and Denies eye pain ENT: Denies vertigo, Denies dizziness, Denies hearing loss, Denies mouth pain, Denies nasal obstruction, Denies neck mass and Denies neck pain Cardiovascular: Cardiovascular: Denies chest pain, Denies diaphoresis, Denies syncope, Denies leg edema and Denies dyspnea Respiratory: Respiratory: Denies chest congestion, Denies cough, Denies hemoptysis, Denies dyspnea and Denies wheezing Gastrointestinal: Gastrointestinal: Denies abdominal pain, Denies constipation, Denies diarrhea, Denies nausea and Denies vomiting Genitourinary: Genitourinary: Denies hematuria, Denies change in libido, Denies nocturia, Denies genital lesions, Denies flank pain and Denies urinary urgency Musculoskeletal: Musculoskeletal: Denies abnormal gait, Denies back pain, Denies myalgias, Denies arthralgias, Denies joint swelling, Denies muscle weakness and Denies neck pain Integumentary/Breasts: Skin/Breast: Denies swelling, Denies breast pain, Denies breast mass, Denies dry skin, Denies nipple discharge, Denies unusual bruising and Denies jaundice Neurologic: Denies Neuro-related abnormal movements, Denies Abnormal speech present, Denies abnormal gait, Denies behavioral changes, Denies confusion, Denies vertigo, Denies dizziness, Denies syncope, Denies loss of vision, Denies memory loss, Denies convulsions and Denies weakness Psychiatric: Psychiatric: Denies abnormal sleep pattern, Denies behavioral changes, Denies change in libido, Denies confusion, Denies depression, Denies anhedonia and Denies memory loss Endocrine: Endocrine: Reports no additional endocrine complaints, Denies change in libido and Denies fatigue Hematologic/Lymphatic: Hematologic/Lymphatic: Reports no additional hematologic/lymphatic complaints Allergic/Immunologic: Allergic/Immunologic: Reports no additional allergic/immunologic complaints and Denies wheezing PMFSH Social History Social History Smoking status: Current every day smoker Tobacco type: e-cigarettes/vaping Substance use type: marijuana Other substance usage details: Here and there. Living arrangements: with family Spiritual care concerns: No Meds Home Medications and Allergies Home Medications ?Medication ?Instructions ?Recorded ?Confirmed ?Type propranolol 10 mg tablet 10 mg PO Q12H PRN anxiety 09/24/24 09/14/25 History aripiprazole 2 mg tablet 2 mg PO DAILY 09/09/25 09/14/25 History desvenlafaxine succinate 50 mg 50 mg PO DAILY 09/09/25 09/14/25 History tablet,extended release 24 hr (Pristiq) Allergies Allergy/AdvReac Type Severity Reaction Status Date / Time buspirone Allergy Severe Hypertensio Verified 09/14/25 07:39 n Vital Signs Vital Signs - 24 hr 09/14/25 07:41 Temperature 98.6 F Pulse Rate 64 Respiratory Rate 14 Blood Pressure 125/68 Pulse Oximetry 100 Exam Const: General: cooperative, healthy appearing, comfortable and no acute distress Orientation/consciousness: oriented to person, oriented to place and oriented to time HENMT: Head: normal to inspection Ears: external ears normal Face/Nose/Sinus: Normal external nose present and normal facial exam Face and sinus: normal facial exam Eyes: General: appearance normal, both eyes and all related structures Neck: Neck: normal visual inspection, trachea midline and supple Resp: Auscultation: clear to auscultation bilaterally, no crackles, no rales, no rhonchi and no wheezes Cardio: Rate: regular rate Rhythm: regular rhythm Heart sounds: no click, no murmurs and no rubs GI: GI Palp: No abdominal tenderness, No Soft to palpation, No Tenderness to palpation present (GI) and No Palpable mass present Auscultation: normal bowel sounds Skin: General skin exam: normal color and no rashes or lesions noted Neuro: General: oriented to person, oriented to place and oriented to time Extrem: General: normal to inspection, no joint enlargement, no clubbing, cyanosis or edema, no pedal edema and no calf tenderness Psych: Appearance: grossly normal Mental Status: mental status grossly normal Speech and movement: Normal speech and movement present Assessment and Plan Assessment and plan (1) Unwanted fertility: Code(s): Z30.09 - Encounter for other general counseling and advice on contraception Status: Acute (2) Menorrhagia: Code(s): N92.0 - Excessive and frequent menstruation with regular cycle Status: Acute Plan This patient is a 35-year-old female with menorrhagia and unwanted fertility. We agreed to perform laparoscopic bilateral salpingectomy and endometrial ablation with hysteroscopy. She understands the risks, benefits, and alternatives. She has completed informed consent process and is ready to proceed.
--- NOTE | 2025-09-14 08:21 | WPDHPUPDATE1 ---
History and Physical Update Update Date/Time: 09/14/25 08:21 History and Physical has been reviewed, including an updated exam of the patient. There are NO changes in the patient's condition. Risks, benefits, and alternatives have been discussed and questions answered. Patient agrees to proceed with procedure.
--- NOTE | 2025-09-14 08:31 | W.PM.PROC2 ---
Procedure Note - Detailed Date of Procedure 09/14/25 Pre-op Diagnosis desires sterilization, menorrhagia Post-op Diagnosis Same Procedure Performed Laparoscopic bilateral salpingectomy Surgeon Jesse Shepard MD Anesthesia General Indications Unwanted fertility Findings Normal pelvic anatomy Description of Procedure The patient was taken the operating room. She was prepped and draped in the dorsal lithotomy position after induction of general anesthesia. A 5 mm skin incision was made in the left upper quadrant of the abdominal skin. A 5 mm trocar was inserted the intra-abdominal cavity under direct visualization of the scope. Pneumoperitoneum was achieved. A 5 mm trocar was inserted in the left lower quadrant identical fashion. A 5 mm infraumbilical trocar was inserted in identical fashion as well. The bilateral fallopian tubes were removed. This was done by using a LigaSure cautery. The mesosalpinx adjacent to the tube was cauterized transected with LigaSure. This was initiated in the area the ovary and in a stepwise fashion moved medially to the area of the cornu of the uterus. Once there the fallopian tube was cauterized and transected. This was done in identical fashion on each side. The fallopian tubes were taken out through the left lower quadrant trocar site. The pneumoperitoneum was reduced. The trocars removed. The skin was closed with subcuticular 4 Monocryl and covered with Dermabond. She was taken to cover stable condition. Sponge lap and needle counts were correct x2. Estimated Blood Loss 5 Drains No Packing No Pathology Yes Complications No immediate complications Condition Stable Disposition PACU
--- NOTE | 2025-09-14 09:17 | S_PTH ---
PATIENT: Korin Art LOC: [facility] U#:[id number] AGE/SX: 35/F ROOM: RE09/14/[address]: Jesse Shepard MD : 1990 BED: DIS: 09/14/2025 SPEC #: [id number] RECD: 09/14/25 10:58 STATUS: JACQUELYN REManjit #: [id number] URMILA: 09/14/25 09:[address]: Jesse Shepard DEPT: [facility] Surgical RECD BY: Puja Gannon Tissues: A - Fallopian Tube Bilateral B - Endometrial Curettings Procedures: Gross and Microscopic Level 2 Hematoxylin and Eosin Stain Gross and Microscopic Level 4
--- NOTE | 2025-09-14 09:43 | P.OP_ITS ---
Procedure Note - Detailed Date of Procedure 09/14/25 Pre-op Diagnosis desires sterilization, menorrhagia Post-op Diagnosis Same Procedure Performed Laparoscopic bilateral salpingectomy with endometrial ablation and hysteroscopy. Surgeon Jesse Shepard MD Anesthesia General Indications Menorrhagia, female sterilization Findings Normal pelvic anatomy Description of Procedure Patient was taken the operating room. She has prepped draped in the dorsal lithotomy position after induction of general anesthesia. A 5 mm abdominal incision was made in left upper quadrant of the abdomen with scalpel. A 5 mm trocars inserted the intra-abdominal cavity under direct visualization of the scope. Pneumoperitoneum was achieved. A 5 mm periumbilical incision was made using a scalpel on the abdominal scan. A 5 mm trocar was inserted the intra- abdominal cavity under visualization of the scope. A 5 mm incision made left lower quadrant of the abdomen. A 5 mm trocar was inserted the intra-abdominal cavity and direct visualization of the scope. The bilateral fallopian tubes were removed. The paratubal tissue in the area of the uterus was grasped with the LigaSure cautery and transected after being cauterized. The paratubal tissue from the ovary to the uterine cornu was cauterized and transected with LigaSure cautery. This was all done in a bilateral fashion. The tube was transected at the area of the uterine cornua and the tubes was removed through the 5 mm trocar site. The pneumoperitoneum was reduced. The trocars were removed. The skin was closed with subcuticular 4 Monocryl and covered with Dermabond. Our attention was then turned to the endometrial ablation portion of the procedure. A speculum was placed in the vagina. The cervix was grasped with a tenaculum. The cervix was dilated to approximately 8 mm with Durham dilators. The hysteroscope was inserted. And the below findings were noted. All of the intrauterine surfaces were curettaged with a medium-size curette and the spec imens were collected. Measurements of the cervix were taken using the uterine sound and the hysteroscope. The intrauterine cavity measurements were entered into the handpiece. The device was inserted into the intrauterine cavity and the array was expanded. The balloon cuff was inflated. When an adequate seal was formed the safety and energy cycles were initiated and completed. The array was collapsed, the balloon was deflated. The insert was withdrawn. The hysteroscope was reinserted and a well desiccated intrauterine cavity was observed. The patient was taken recovery room stable condition. Sponge lap and needle counts were correct x2. She tolerated the procedure well. Estimated Blood Loss 5 Pathology Yes Complications No immediate complications Condition Stable Disposition PACU
[2025-09-14] MEDS: fentaNYL CITRATE INJ (*CRX) 100 MCG/2 ML VIAL 25 MCG IV PUSH ×4 (09:58→10:15)
[2025-09-14] MEDS: oxyCODONE HCL (*CRX) 5 MG TAB IR PO (10:48)
== END 2025-09-14 11:17 | disposition home or self-care (01) ==
PROVIDERS: Visit Provider Obstetrics & Gynecology
PROC: 0U5B8ZZ Destruction of Endometrium, Via Natural or Artificial Opening Endoscopic (ICD-10-PCS; CPT 58563; principal; 2025-09-14 09:00)
PROC: (CPT 49320; 2025-09-14 09:00)
DX: N92.0 Excessive and frequent menstruation with regular cycle (principal); Z30.2 Encounter for sterilization; F17.290 Nicotine dependence, other tobacco product, uncomplicated; F12.90 Cannabis use, unspecified, uncomplicated; E66.9 Obesity, unspecified; Z68.30 Body mass index [BMI] 30.0-30.9, adult
CPT/HCPCS: 58661; 58563; 88302; 88305; A9270; J1100; J1885; J2003; J2250; J2405; J2704; J3010; J7120